=== PATIENT | male | born 1940 | race Caucasian/White ===

== ENCOUNTER 2017-05-30 09:38 | Emergency (ER) | payer MEDICARE, MEDICAID, SELFPAY ==
[2017-05-30 09:41] VITALS: BP 127/51; PULSE 56; RESP 20; TEMP 36.6; O2SAT 99; BMI 54.9
--- NOTE | 2017-05-30 09:50 | XR_ITS ---
XR elbow LT min 3V HISTORY: Left elbow pain with limited range of motion following injury ITS.REASON: S/P FALL LEFT ELBOW PAIN ORDERING PHYSICIAN: Cate Mccabe MD PATIENT AGE: 76 years COMPARISON: None FINDINGS: BONY STRUCTURES: No fracture or dislocation. No lytic or blastic change. Normal mineralization. SOFT TISSUES: Unremarkable. No radio opaque foreign bodies. No displaced fat pad. JOINT SPACE: Well-preserved. No significant arthritic changes evident. IMPRESSION: Negative elbow.
--- NOTE | 2017-05-30 09:58 | XR_ITS ---
XR forearm LT 2V HISTORY: Left forearm pain following injury ITS.REASON: fall in the [facility] ORDERING PHYSICIAN: Cate Mccabe MD PATIENT AGE: 76 years COMPARISON: None FINDINGS: No obvious fracture, dislocation, lytic change or blastic change. Normal mineralization. Unremarkable soft tissues. There is diffuse vascular calcification IMPRESSION: No acute finding
--- NOTE | 2017-05-30 09:58 | XR_ITS ---
XR wrist LT min 3V HISTORY: Pain following injury ITS.REASON: fall in the [facility] ORDERING PHYSICIAN: Cate Mccabe MD PATIENT AGE: 76 years COMPARISON: None FINDINGS: The distal radius and ulna have an unremarkable appearance. On the lateral view there are 2 calcific densities one of which is relatively well-circumscribed measuring 4 mm. This is consistent with a triquetral avulsion fracture age indeterminate. Please correlate with clinical findings. There is generalized vascular calcification. IMPRESSION: The findings are consistent with avulsion fracture of the triquetrum possibly old. Please correlate with patient's area of pain and tenderness.
--- NOTE | 2017-05-30 10:17 | ED_ITS ---
ED Disposition Clinical Impression: Fall, Parkinson disease, Contusion of elbow, left, Dementia, CAD (coronary artery disease), Encounter for aspirin therapy Disposition: Home, Self-Care Condition on Discharge: Fair Additional Instructions: fall precautions. follow up with DR Osman on final x ray reports. rest, ice , elevate and tylenol as needed for pain. Referrals: Andres Osman MD [Primary Care Provider] - - Critical Care Critical Care Time: No Attestation: On 05/30/17, the high probability of a clinically significant, sudden or life threatening deterioration of the following system(s) required my full and direct attention, intervention and personal management. The time I documented below is in addition to time spent performing reported procedures but includes the following listed in this critical care notation. Medical Decision Making - Paul Inquiry Pt receiving controlled substance: No Paul was queried for this patient: No Vital Signs: 05/30/17 09:41 Temperature 97.9 F Temperature Source Oral Pulse Rate [Right Brachial] 56 L Respiratory Rate 20 Blood Pressure [Right Arm] 127/51 Blood Pressure Mean [Right Arm] 76 Blood Pressure Source [Right Arm] Automatic Cuff Blood Pressure Position [Right Arm] Supine 02 Sat by Pulse Oximetry 99 Oxygen Delivery Method Room Air Orders (Tests/Meds): ORDERS Category Date Time Status Elbow XR left mininum 3 views [XR elbow LT min 3V] Stat Exams 05/30/17 09:50 Taken Wrist XR left minimum 3 views [XR wrist LT min 3V] Stat Exams 05/30/17 09:58 Taken XR forearm LT 2V Stat Exams 05/30/17 09:58 Taken - Radiology Data #1 Image(s): Elbow, Forearm, Wrist Image Reviewed: Yes I reviewed the patient's radiology image Preliminary Findings: Abnormal Preliminary report is no fracture no subluxation vascular calcifications no acute injury. General Adult HPI - General Chief complaint: PAIN Stated complaint: s/p fall Time Seen by Provider: 05/30/17 10:00 Mode of Arrival: EMS Limitations: No Limitations Description of Symptoms (Recalled from ER Triage Doc. by RN): S/P FALL C/O LEFT ELBOW PAIN. RESIDENT OF [place] - History of Present Illness HPI narrative: 76 years old white male with history of Parkinson's dementia coronary artery disease on aspirin therapy and frequent falls. He fell today at the [facility] landed on the left elbow was brought for evaluation the patient denies pain , deformity or loss of movement. Denies head injury, neck pain, low back pain or other extremity pain. he does have bruises on the back of both. Discussed with his son Trey who reported that this has happened in the past. Onset (ago): hour(s) (Prior to arrival.) Location: left (left elbow. ), upper extremity Severity: mild Quality: dull Consistency: constant Relieving factors: rest Exacerbating factors: movement Associated symptoms: denies other symptoms Treatments prior to arrival: none - Related Data Home Medications Medication Instructions Recorded Confirmed acetaminophen 500 mg tablet 500 mg PO Q6H PRN 04/23/17 aspirin 81 mg tablet,delayed 81 mg PO ONCE 04/23/17 release calcium carbonate 600 mg calcium 600 mg PO ONCE tab 04/23/17 (1,500 mg) tablet carbidopa 25 mg-levodopa 100 mg 1 tab PO TID 04/23/17 disint
--- NOTE | 2017-05-30 10:50 | [facility].EDGENADL ---
ED Disposition Clinical Impression: Fall, Parkinson disease, Contusion of elbow, left, Dementia, CAD (coronary artery disease), Encounter for aspirin therapy Disposition: Home, Self-Care Condition on Discharge: Fair Additional Instructions: fall precautions. follow up with DR Osman on final x ray reports. rest, ice , elevate and tylenol as needed for pain. Referrals: Andres Osman MD [Primary Care Provider] - - Critical Care Critical Care Time: No Attestation: On 05/30/17, the high probability of a clinically significant, sudden or life threatening deterioration of the following system(s) required my full and direct attention, intervention and personal management. The time I documented below is in addition to time spent performing reported procedures but includes the following listed in this critical care notation. Medical Decision Making - Paul Inquiry Pt receiving controlled substance: No Paul was queried for this patient: No Vital Signs: 05/30/17 09:41 Temperature 97.9 F Temperature Source Oral Pulse Rate [Right Brachial] 56 L Respiratory Rate 20 Blood Pressure [Right Arm] 127/51 Blood Pressure Mean [Right Arm] 76 Blood Pressure Source [Right Arm] Automatic Cuff Blood Pressure Position [Right Arm] Supine 02 Sat by Pulse Oximetry 99 Oxygen Delivery Method Room Air Orders (Tests/Meds): ORDERS Category Date Time Status Elbow XR left mininum 3 views [XR elbow LT min 3V] Stat Exams 05/30/17 09:50 Taken Wrist XR left minimum 3 views [XR wrist LT min 3V] Stat Exams 05/30/17 09:58 Taken XR forearm LT 2V Stat Exams 05/30/17 09:58 Taken - Radiology Data #1 Image(s): Elbow, Forearm, Wrist Image Reviewed: Yes I reviewed the patient's radiology image Preliminary Findings: Abnormal Preliminary report is no fracture no subluxation vascular calcifications no acute injury. General Adult HPI - General Chief complaint: PAIN Stated complaint: s/p fall Time Seen by Provider: 05/30/17 10:00 Mode of Arrival: EMS Limitations: No Limitations Description of Symptoms (Recalled from ER Triage Doc. by RN): S/P FALL C/O LEFT ELBOW PAIN. RESIDENT OF [place] - History of Present Illness HPI narrative: 76 years old white male with history of Parkinson's dementia coronary artery disease on aspirin therapy and frequent falls. He fell today at the [facility] landed on the left elbow was brought for evaluation the patient denies pain, deformity or loss of movement. Denies head injury, neck pain, low back pain or other extremity pain. he does have bruises on the back of both. Discussed with his son Trey who reported that this has happened in the past. Onset (ago): hour(s) (Prior to arrival.) Location: left (left elbow. ), upper extremity Severity: mild Quality: dull Consistency: constant Relieving factors: rest Exacerbating factors: movement Associated symptoms: denies other symptoms Treatments prior to arrival: none - Related Data Home Medications Medication Instructions Recorded Confirmed acetaminophen 500 mg tablet 500 mg PO Q6H PRN 04/23/17 aspirin 81 mg tablet,delayed 81 mg PO ONCE 04/23/17 release calcium carbonate 600 mg calcium 600 mg PO ONCE tab 04/23/17 (1,500 mg) tablet carbidopa 25 mg-levodopa 100 mg 1 tab PO TID 04/23/17 disintegrating tablet diphenhydramine 25 mg tablet 25 mg PO Q4-6H PRN 04/23/17 docusate sodium 250 mg capsule 250 mg PO ONCE 04/23/17 furosemide 20 mg tablet 20 mg PO ONCE 04/23/17 furosemide 20 mg tablet 20 mg PO ONCE 04/23/17 guaifenesin 100 mg oral granules 150 mg PO Q4-6H PRN 04/23/17 in packet guaifenesin 100 mg oral granules 150 mg PO Q4-6H PRN 04/23/17 in packet lactulose 10 gram oral packet 10 g PO ONCE 04/23/17 loratadine 10 mg tablet 10 mg PO ONCE 04/23/17 meloxicam 15 mg tablet 15 mg PO ONCE 04/23/17 metoprolol succinate ER 50 mg 50 mg PO BID 04/23/17 tablet,extended release 24 hr mirtazapine
[2017-05-30 11:08] VITALS: BP 151/59; PULSE 50; RESP 18; TEMP 36.6; O2SAT 100
== END 2017-05-30 11:11 | disposition home or self-care (01) ==
PROVIDERS: Emergency Provider Emergency Medicine; Family Provider Emergency Medicine; PCP Emergency Medicine
DX: S50.02XA Contusion of left elbow, initial encounter (principal); W01.0XXA Fall on same level from slipping, tripping and stumbling without subsequent striking against object, initial encounter; Y92.199 Unspecified place in other specified residential institution as the place of occurrence of the external cause; G20 Parkinson's disease; F02.80 Dementia in other diseases classified elsewhere, unspecified severity, without behavioral disturbance, psychotic disturbance, mood disturbance, and anxiety; I25.10 Atherosclerotic heart disease of native coronary artery without angina pectoris; Z79.82 Long term (current) use of aspirin; E78.5 Hyperlipidemia, unspecified; I10 Essential (primary) hypertension; Z88.2 Allergy status to sulfonamides
CPT/HCPCS: 73080; 73090; 73110; 99281

== ENCOUNTER → 2017-06-07 10:03 | Outpatient (CLI) | payer MEDICARE, MEDICAID, SELFPAY ==
--- NOTE | 2017-06-07 10:31 | XR_ITS ---
XR wrist LT min 3V HISTORY: Pain following injury ITS.REASON: Possible fx ORDERING PHYSICIAN: Calos Ramirez MD PATIENT AGE: 76 years COMPARISON: 05/30/2017 FINDINGS: Calcific debris once again noted along the dorsal mid aspect of the wrist suggesting a triquetral avulsion injury age indeterminate not significantly changed. There is diffuse vascular calcification. No other anomalies are evident aside for mild osteoarthritic change at the first metacarpal carpal joint. IMPRESSION: 1. Triquetral avulsion fracture age indeterminate. 2. No other acute findings evident
== END ==
PROVIDERS: PCP Emergency Medicine; Visit Provider Orthopaedic Surgery
DX: M25.532 Pain in left wrist
CPT/HCPCS: 73110

== ENCOUNTER 2018-04-15 15:36 | Observation (INO) ==
--- NOTE | 2018-04-15 15:43 | Emergency Department Note ---
ED Disposition Clinical Impression: New onset atrial fibrillation, Paroxysmal atrial fibrillation Chest pain Qualifiers: Chest pain type: unspecified Qualified Code(s): R07.9 - Chest pain, unspecified Disposition: Admitted as Observation Condition on Discharge: Good Referrals: Andres Osman MD [Primary Care Provider] - - Critical Care Critical Care Time: No Attestation: On 04/15/18, the high probability of a clinically significant, sudden or life threatening deterioration of the following system(s) required my full and direct attention, intervention and personal management. The time I documented below is in addition to time spent performing reported procedures but includes the following listed in this critical care notation. Medical Decision Making - Paul Inquiry Pt receiving controlled substance: No Vital Signs: 04/15/18 15:37 04/15/18 16:01 Temperature 98.1 F Temperature Source Oral Pulse Rate [Left Radial] 110 H 68 Respiratory Rate 20 Blood Pressure [Right Arm] 125/83 111/38 L Blood Pressure Mean [Right Arm] 97 62 Blood Pressure Source [Right Arm] Automatic Cuff Automatic Cuff Blood Pressure Position [Right Arm] Sitting Sitting 02 Sat by Pulse Oximetry 96 97 Oxygen Delivery Method Room Air Room Air - Lab Data Lab Results 04/15/18 15:46: WBC 9.7, RBC 4.11 L, Hgb 12.8 L, Hct 40.0 L, MCV 97.2 H, MCH 31.2, MCHC 32.1, RDW 13.1, Plt Count 275, MPV 6.7 L, Neut % (Auto) 64.4, Lymph % (Auto) 25.1, [place] % (Auto) 5.1, Eos % (Auto) 4.7, Baso % (Auto) 0.6, Neut # (Auto) 6.3, Lymph # (Auto) 2.4, [place] # (Auto) 0.5, Eos # (Auto) 0.5 H, Baso # (Auto) 0.1 04/15/18 15:46: Sodium 140, Potassium 4.6, Chloride 105, Carbon Dioxide 29, Anion Gap 10.6, BUN 33 H, Creatinine 1.48 H, Estimated Creat Clear 44, Estimated GFR 46 L, Est GFR ( Amer) 56 L, Glucose 159 H, Calcium 9.5, Total Bilirubin 0.4, Direct Bilirubin 0.1, Indirect Bilirubin 0.3, AST 18, ALT 10 L, Alkaline Phosphatase 101, Troponin I < 0.02, Total Protein 7.4, Albumin 3.1 L, Amylase 39, Lipase 149 04/15/18 15:46: TSH 3.20, Free T4 Index 3.0 L, Thyroxine (T4) 8.7, T3 Uptake 35 04/15/18 15:46: Magnesium 2.2 Result diagrams: 04/15/18 15:46 04/15/18 15:46 Orders (Tests/Meds): ED MEDICATIONS Discontinued Medications Generic Name Dose Route Start Last Admin Trade Name Freq PRN Reason Stop Dose Admin Digoxin 125 mcg 04/15/18 17:01 Digoxin 0.125mg Tablet PO 04/15/18 17:02 ONCE ONE Diltiazem HCl 10 mg 04/15/18 15:52 Cardizem 25mg/5ml Vial IV 04/15/18 15:53 ONCE ONE Diltiazem HCl 125 mg/ Sodium 125 mls @ 5 mls/hr 04/15/18 16:15 Chloride IV 05/15/18 16:14 .Q25H JOSE Protocol 5 MG/HR ORDERS Category Date Time Status Troponin I Timed Lab 04/15/18 18:30 Ordered - Radiology Data #1 Image(s): Chest Image Reviewed: Yes I reviewed the patient's radiology image scar vs atelect L base, no change from prior - ECG Data Tracing #1 EKG interpreted by Abhijeet Goncalves MD: Rhythm: Significant artifact present, irregular narrow complex rhythm, likely atrial fibrillation Rate: 114 [place]: Left Ectopy: none Conduction: normal ST Segment Changes: none T Wave Changes: none Q Waves: none No evidence of acute ischemia or injury 1 prior EKG found which was sinus rhythm Tracing #2 Patient spontaneously converted to sinus rhythm. EKG #2 interpreted by Abhijeet Goncalves MD: Rhythm: sinus Rate: 68 Maple: Left Ectopy: none Conduction: normal ST Segment Changes: none T Wave Changes: none Q Waves: none No evidence of acute ischemia or injury - Physician Consults Physician Consulted: Ayden Osman Time: 17:05 Reason -: Admission Comment/Response: Agrees to admit the patient to the hospital. We discussed the patient's clinical information, including history, exam, laboratory and radiology results and ED course. Per hospital procedure, I will write temporary bridge inpatient orders on the patient. Specific orders requested by the admitting physician: Telemetry, serial troponin, echo in the morning, one-time dose of oral digoxin 0.125 mg. General Adult HPI - General Chief complaint: Chest Pain Stated complaint: chest pain Time Seen by Provider: 04/15/18 15:38 Mode of Arrival: EMS - History of Present Illness HPI narrative: Brought in by ambulance from [facility] for a report of chest pain. The patient indicates to me that he has no pain of any type at present, but other than this I cannot understand his speech or answers to questions. Noted to have a diagnosis of dementia as well as Parkinson's disease. Has coronary artery disease. - Related Data Home Medications Medication Instructions Recorded Confirmed acetaminophen 500 mg tablet 500 mg PO Q6H PRN 04/23/17 04/15/18 aspirin 81 mg tablet,delayed 81 mg PO ONCE 04/23/17 04/15/18 release calcium carbonate 600 mg calcium 600 mg PO ONCE tab 04/23/17 04/15/18 (1,500 mg) tablet carbidopa 25 mg-levodopa 100 mg 1 tab PO TID 04/23/17 04/15/18 disintegrating tablet lactulose 10 gram oral packet 10 g PO ONCE 04/23/17 04/15/18 meloxicam 15 mg tablet 15 mg PO ONCE 04/23/17 04/15/18 metoprolol succinate ER 50 mg 50 mg PO BID 04/23/17 04/15/18 tablet,extended release 24 hr mirtazapine 15 mg tablet 15 mg PO QHS 04/23/17 04/15/18 oxybutynin chloride ER 10 mg 10 mg PO ONCE 04/23/17 04/15/18 tablet,extended release 24 hr polyethylene glycol liquid 17 gram MISCELLANE DAILY 04/23/17 04/15/18 pravastatin 40 mg tablet 40 mg PO QHS 04/23/17 04/15/18 ranitidine 150 mg capsule 150 mg PO QHS 04/23/17 04/15/18 rivastigmine 9.5 mg/24 hour 9.5 mg TRANSDERMA ONCE 04/23/17 04/15/18 transdermal patch sennosides 8.6 mg tablet 12 mg PO QHS 04/23/17 04/15/18 tamsulosin 0.4 mg capsule 0.4 mg PO ONCE 04/23/17 04/15/18 tramadol 50 mg tablet 50 mg PO ONCE 04/23/17 04/15/18 white petrolatum-mineral oil 83 1 applic OPHTHALMIC ONCE 04/23/17 04/15/18 %-15 % eye ointment fluoxetine 10 mg capsule 20 mg PO DAILY cap 05/24/17 04/15/18 gabapentin 100 mg capsule 100 mg PO BID cap 05/24/17 04/15/18 Carboxymethylcellulose Sodium 1 each OP BID 04/15/18 04/15/18 [Lubricant Plus] Dextran 70/Hypromellose 1 each OP TID 04/15/18 04/15/18 [Artificial Tears] Olopatadine HCl [Pataday] 1 drop OP BID 04/15/18 04/15/18 Propylene Glycol/Peg 400/Pf 1 each OP BID 04/15/18 04/15/18 [Systane 0.3-0.4% Eye Drops] Allergies Allergy/AdvReac Type Severity Reaction Status Date / Time Sulfa (Sulfonamide Allergy Unknown Verified 02/11/18 12:01 Antibiotics) [SULFA (SULFONAMIDE ANTIBIOTICS)] sulfamethoxazole Allergy Unknown Verified 02/11/18 12:01 [From Bactrim] trimethoprim [From Bactrim] Allergy Unknown Verified 02/11/18 12:01 [facility] History - Hepatitis A Screen Attestation statement:: This patient has been screened for Hepatitis A risk factors. I have reviewed the patient's past medical history: Yes Medical History: Reports:: Hyperlipidemia, Hypertension Other Medical History: Reports: Arthritis Other Surgeries: Yes: Colonoscopy, Other - Social History Smoking Status: Unknown if ever smoked Alcohol Intake: never ROS Obtained: Yes unobtainable due to mental condition Physical Exam - General General appearance: alert, in no apparent distress Comment: Parkinsonian pill-rolling tremor - Head Head exam: atraumatic, normocephalic - Eye Eye exam: Present: normal appearance - ENT ENT exam: Present: mucous membranes moist - Neck Neck exam: Present: normal inspection, trachea midline - Chest Chest inspection: Present: normal inspection, symmetric chest wall rise - Respiratory Respiratory exam: Present: normal lung sounds bilaterally. Absent: respiratory distress - Cardiovascular Cardiovascular exam: Present: tachycardia, irregular rhythm, normal heart sounds - Abdominal Exam Abdominal exam: Present: soft. Absent: distention, tenderness, guarding, rebound, rigidity - Extremities Exam Extremities exam: Present: normal inspection - Neurological Exam Neurological exam: Present: alert - Skin Skin exam: Present: warm, dry
[2018-04-15 16:00] LABS: Basophils # 0.1 K/mm3 (0-0.2); Basophils % 0.6 % (0.1-2.0); Eosinophils # 0.5 K/mm3 (0.0-0.4); Eosinophils % 4.7 % (0.1-12.0); Hemoglobin 12.8 g/dL (14.1-18.0); Lymphocytes # 2.4 K/mm3 (0.7-4.5); Lymphocytes % 25.1 % (10-50); Mean Corpuscular HGB Conc 32.1 g/dL (31.8-35.4); Mean Corpuscular Hemoglobin 31.2 pg (27.0-31.2); Mean Corpuscular Volume 97.2 fl (80-94); Mean Platelet Volume 6.7 fl (7.4-10.4); Monocytes # 0.5 K/mm3 (0.1-1.0); Monocytes % 5.1 % (1.7-9.3); Neutrophils # 6.3 K/mm3 (1.8-7.8); Neutrophils % 64.4 % (37.0-80.0); Platelet Count 275 K/mm3 (142-424); Red Blood Count 4.11 M/mm3 (4.60-6.20); Red Cell Distribution Width 13.1 % (11.5-17.5); White Blood Count 9.7 K/mm3 (4.8-10.8)
[2018-04-15 16:16] LABS: Alanine Aminotransferase 10 U/L (12-78); Albumin Level 3.1 gm/dL (3.4-5.0); Alkaline Phosphatase 101 U/L (46-116); Amylase 39 U/L (25-115); Anion Gap 10.6 mEq/L (5-15); Aspartate Amino Transferase 18 U/L (15-37); Bilirubin,Direct 0.1 mg/dL (0.0-0.2); Bilirubin,Indirect 0.3 mg/dL (0.0-0.9); Bilirubin,Total 0.4 mg/dL (0.2-1.0); Blood Urea Nitrogen 33 mg/dL (7-18); Calcium 9.5 mg/dL (8.5-10.1); Carbon Dioxide 29 mmol/L (21.0-32.0); Chloride 105 mmol/L (98-107); Glucose 159 mg/dL (74-106); Lipase 149 u/L (73-393); Potassium 4.6 mmoL/L (3.5-5.1); Sodium 140 mmol/L (136-145); Total Protein,Serum 7.4 gm/dL (6.4-8.2)
[2018-04-15 16:26] LABS: Thyroid Stimulating Hormone 3.2 uIU/ml (0.358-3.740)
--- NOTE | 2018-04-15 21:50 | History & Physical Report ---
*Admission Date: 04/15/18 *Chief complaint: chest pain *History of present illness: this wm was sent from [facility] for eval of chest pain ught in by ambulance from [facility] for a report of chest pain. The patient indicates to me that he has no pain of any type at present, . Noted to have a diagnosis of dementia as well as Parkinson's disease. Has coronary artery disease. [facility] History I have reviewed the patient's past medical history: Yes Medical History: Reports:: Hyperlipidemia, Hypertension Denies:: Diabetes Mellitus Type 1, Diabetes Mellitus Type 2 Have you ever received a pneumonia vaccine?: No Have you received a flu vaccine this season?: Yes Other Medical History: Reports: Arthritis Other Surgeries: Yes: Colonoscopy, Other - *Social History Smoking Status: Unknown if ever smoked Alcohol Intake: never Occupational Status: other Travel in the last 8 weeks: None - Psychiatric History Expresses thoughts of harming self/others: None Suicide Plan Description: No Plan *Family Hx:: Unable to obtain Review of Systems - Review of Systems Review of systems:: pertinent systems reviewed and negative unless documented below - Constitutional Denies fever(s) - Eyes Denies blurry vision - ENT Denies facial pain - *Cardiovascular Reports chest pain, Reports rapid, pounding, or irregular heartbeat, Denies radiating jaw, neck or arm pain - *Respiratory Denies cough - *Gastrointestinal Denies excessive passing of gas, Denies bright, red blood in stools, Denies vomiting - *Genitourinary Denies blood in urine - *Musculoskeletal Denies joint swelling - Integumentary/Breasts Denies rash - *Neurologic Denies localized weakness, Denies headache(s), Denies seizure-like activity - Psychiatric Denies anxiety Meds Home Medications Medication Instructions Recorded Confirmed Type acetaminophen 500 mg tablet 500 mg PO Q4HP PRN 04/23/17 04/15/18 History aspirin 81 mg tablet,delayed 81 mg PO DAILY 04/23/17 04/15/18 History release lactulose 10 gram oral packet 30 ml PO DAILYP PRN 04/23/17 04/15/18 History meloxicam 15 mg tablet 15 mg PO DAILY 04/23/17 04/15/18 History metoprolol succinate ER 50 mg 50 mg PO DAILY 04/23/17 04/16/18 History tablet,extended release 24 hr oxybutynin chloride ER 10 mg 10 mg PO DAILY 04/23/17 04/15/18 History tablet,extended release 24 hr polyethylene glycol liquid 17 g MISCELLANE DAILY 04/23/17 04/15/18 History pravastatin 40 mg tablet 40 mg PO QHS 04/23/17 04/15/18 History ranitidine 150 mg capsule 150 mg PO QHS 04/23/17 04/15/18 History sennosides 8.6 mg tablet 2 tab PO BID 04/23/17 04/16/18 History tamsulosin 0.4 mg capsule 0.4 mg PO HS 04/23/17 04/16/18 History white petrolatum-mineral oil 83 1 applic OPHTHALMIC DAILY 04/23/17 04/15/18 Hi story %-15 % eye ointment gabapentin 100 mg capsule 100 mg PO BID cap 05/24/17 04/15/18 History Carboxymethylcellulose Sodium 1 each OP BID 04/15/18 04/15/18 History [Lubricant Plus] Dextran 70/Hypromellose 1 each OP TID 04/15/18 04/15/18 History [Artificial Tears] Olopatadine HCl [Pataday] 1 drp OP BID 04/15/18 04/15/18 History Ondansetron HCl [Zofran 4mg Tab] 4 mg PO Q8HP PRN 04/15/18 04/15/18 History Propylene Glycol/Peg 400/Pf 1 each OP HS 04/15/18 04/15/18 History [Systane 0.3-0.4% Eye Drops] Tramadol HCl [Tramadol 50mg 50 mg PO TID 04/15/18 04/15/18 History Tab] Vit C/Vit E AC/Lut/Copper/Zinc 1 each PO DAILY 04/15/18 04/15/18 History [Preservision Lutein Softgel] guaiFENesin [Robitussin 200mg/10mL 200 mg PO Q4HP PRN 04/15/18 04/15/18 History Syrup Udc] Calcium Carbonate/Vitamin D3 1 each PO DAILY 04/16/18 04/16/18 History [Caltrate 600 Plus D3 Tablet] Carbidopa/Levodopa 1 tab PO 1300,2100 04/16/18 04/16/18 History [Carbidopa/Levodopa 25/100mg Tablet] Carbidopa/Levodopa 2 tab PO 0900,1700 04/16/18 04/16/18 History [Carbidopa/Levodopa 25/100mg Tablet] Fluoxetine HCl [Prozac 20mg 20 mg PO DAILY 04/16/18 04/16/18 History Capsule] Rivastigmine [Exelon] 1 each TD DAILY 04/16/18 04/16/18 History Allergies Allergy/AdvReac Type Severity Reaction Status Date / Time Sulfa (Sulfonamide Allergy Unknown Verified 04/15/18 20:49 Antibiotics) [SULFA (SULFONAMIDE ANTIBIOTICS)] sulfamethoxazole Allergy Unknown Verified 04/15/18 20:49 [From Bactrim] trimethoprim [From Bactrim] Allergy Unknown Verified 04/15/18 20:49 Exam Vital signs and Labs for Last 24 Hours: Temp Pulse Resp BP Pulse Ox 98 F 60 20 112/87 97 04/15/18 17:50 04/15/18 17:56 04/15/18 17:50 04/15/18 17:50 04/15/18 17:32 Laboratory Results - last 24 hr 04/15/18 15:46: WBC 9.7, RBC 4.11 L, Hgb 12.8 L, Hct 40.0 L, MCV 97.2 H, MCH 31.2, MCHC 32.1, RDW 13.1, Plt Count 275, MPV 6.7 L, Neut % (Auto) 64.4, Lymph % (Auto) 25.1, [place] % (Auto) 5.1, Eos % (Auto) 4.7, Baso % (Auto) 0.6, Neut # (Auto) 6.3, Lymph # (Auto) 2.4, [place] # (Auto) 0.5, Eos # (Auto) 0.5 H, Baso # (Auto) 0.1 04/15/18 15:46: Sodium 140, Potassium 4.6, Chloride 105, Carbon Dioxide 29, Anion Gap 10.6, BUN 33 H, Creatinine 1.48 H, Estimated Creat Clear 44, Estimated GFR 46 L, Est GFR ( Amer) 56 L, Glucose 159 H, Calcium 9.5, Total Bilirubin 0.4, Direct Bilirubin 0.1, Indirect Bilirubin 0.3, AST 18, ALT 10 L, Alkaline Phosphatase 101, Troponin I < 0.02, Total Protein 7.4, Albumin 3.1 L, Amylase 39, Lipase 149 04/15/18 15:46: TSH 3.20, Free T4 Index 3.0 L, Thyroxine (T4) 8.7, T3 Uptake 35 04/15/18 15:46: Magnesium 2.2 04/15/18 18:51: Troponin I < 0.02 04/15/18 21:22: Troponin I 0.02 I & O for Last 24 hours: Intake & Output 04/13/18 04/14/18 04/15/18 04/16/18 11:59 11:59 11:59 11:59 Weight 162 lb 6 oz - Constitutional no acute distress - *Routine HEENT Exam Head: Present: normocephalic Eye: Present: EOMI, PERRL ENT: Present: mucous membranes dry - *Routine Neck Exam Absent: JVD - *Routine Respiratory Exam Present: decreased breath sounds - *Routine Cardiovascular Exam Present: RRR, murmur, S4 - *Routine Abdominal Exam Present: soft - *Routine Extremities Exam Present: edema. Absent: calf tenderness - *Routine Skin Exam Present: intact - *Routine Neurological Exam Present: alert, oriented X3. Absent: motor deficit - Routine Psychiatric Exam Present: unable to assess Assessment and Plan (1) Atrial fibrillation Current visit: Yes Status: Acute Category: Medical Code(s): I48.91 - Unspecified atrial fibrillation (2) Dementia Current visit: Yes Status: Acute Qualifiers: Dementia type: unspecified type Dementia behavioral disturbance: without behavioral disturbance Qualified Code(s): F03.90 - Unspecified dementia without behavioral disturbance Category: Medical Code(s): F03.90 - Unspecified dementia without behavioral disturbance (3) Hypertension Current visit: Yes Status: Acute Category: Medical Code(s): I10 - Essential (primary) hypertension (4) New onset atrial fibrillation Current visit: Yes Status: Acute Category: Medical Code(s): I48.91 - Unspecified atrial fibrillation (5) Parkinson disease Current visit: Yes Status: Acute Category: Medical Code(s): G20 - Parkinson's disease (6) Renal insufficiency Current visit: Yes Status: Acute Category: Medical Code(s): N28.9 - Disorder of kidney and ureter, unspecified
[2018-04-16 05:47] LABS: Basophils # 0.1 K/mm3 (0-0.2); Basophils % 0.5 % (0.1-2.0); Eosinophils # 0.5 K/mm3 (0.0-0.4); Eosinophils % 5.9 % (0.1-12.0); Hematocrit 37.6 % (42.0-52.0); Hemoglobin 11.8 g/dL (14.1-18.0); Lymphocytes # 2.8 K/mm3 (0.7-4.5); Lymphocytes % 30.2 % (10-50); Mean Corpuscular HGB Conc 31.5 g/dL (31.8-35.4); Mean Corpuscular Hemoglobin 30.6 pg (27.0-31.2); Mean Corpuscular Volume 97.3 fl (80-94); Mean Platelet Volume 6.7 fl (7.4-10.4); Monocytes # 0.6 K/mm3 (0.1-1.0); Monocytes % 6.4 % (1.7-9.3); Neutrophils # 5.2 K/mm3 (1.8-7.8); Platelet Count 267 K/mm3 (142-424); Red Blood Count 3.87 M/mm3 (4.60-6.20); Red Cell Distribution Width 13.3 % (11.5-17.5); White Blood Count 9.2 K/mm3 (4.8-10.8)
[2018-04-16 05:55] LABS: Anion Gap 10.2 mEq/L (5-15); Potassium 4.2 mmoL/L (3.5-5.1)
--- NOTE | 2018-04-16 07:48 | Pharmacy Consult Notes ---
[facility] Pharmacy VTE Monitoring - Patient Demographics Admission date: 04/15/18 Report Date: 04/16/18 Time: 07:47 Allergies/Adverse Reactions: Patient Allergies Sulfa (Sulfonamide Antibiotics) [SULFA (SULFONAMIDE ANTIBIOTICS)] Allergy (Unknown, Verified 04/15/18 20:49) sulfamethoxazole [From Bactrim] Allergy (Unknown, Verified 04/15/18 20:49) trimethoprim [From Bactrim] Allergy (Unknown, Verified 04/15/18 20:49) Height: 1.65 m Weight: 73.652 kg Patient Problems: Current Active Problems New onset atrial fibrillation (Acute) Paroxysmal atrial fibrillation (Acute) Chest pain (Acute) - VTE Risk Labs: VTE Related Lab Results Hgb 11.8 g/dL (14.1-18.0) L 04/16/18 05:35 Hct 37.6 % (42.0-52.0) L 04/16/18 05:35 Plt Count 267 K/mm3 (142-424) 04/16/18 05:35 BUN 31 mg/dL (7-18) H 04/16/18 05:35 Creatinine 1.61 mg/dL (0.70-1.30) H 04/16/18 05:35 Estimated Creat Clear 39 mL/min (50-200) 04/16/18 05:35 Was VTE Risk Assessment Performed: Yes VTE Score: 2 VTE Risk Level: Low Risk - Prophylaxis VTE Prophylaxis Ordered?: Yes Types of VTE Prophylaxis: TEDS Knee High Location of Applied Device: Bilateral Lower Extremeties - VTE Diagnosis Confirmed Treatment or plan recommended: Continue Current Treatment
--- NOTE | 2018-04-16 11:04 | Consult Report ---
<Cinthya Ruff - Last Filed: 04/16/18 11:01> History of Present Illness Consult date: 04/16/18 (@4189) Requesting physician: Andres Osman Consult reason: chest pain Chief complaint: Chest pain History of present illness: This is a 77-year-old white male who was brought to the emergency department from the care home secondary to chest pain. However when I talked to the patient he denies any chest pain or pressure. He states that he was brought to the hospital to feel better. He denies any complaints at all. The patient does have dementia. He adamantly declines chest pain or pressure this morning. He denies any shortness of breath or edema. The patient states that he feels fine this morning. He is alert and oriented to self and place. When asked if the patient felt his heart racing yesterday he does say yes but states that he had no chest pain or pressure. However in report the nurse says that the care home brought him to the hospital because of him having chest pain. He has ruled out for an OR and is currently having no pain. [facility] History I have reviewed the patient's past medical history: Yes Medical History: Reports:: Atherosclerotic Heart Disease, Coronary Artery Disease, Hyperlipidemia, Hypertension Denies:: Diabetes Mellitus Type 1, Diabetes Mellitus Type 2 Have you ever received a pneumonia vaccine?: No Have you received a flu vaccine this season?: Yes Other Medical History: Reports: Arthritis Other Surgeries: Yes: Colonoscopy, Other - *Social History Smoking Status: Unknown if ever smoked Alcohol Intake: never Occupational Status: other Travel in the last 8 weeks: None - Psychiatric History Expresses thoughts of harming self/others: None Suicide Plan Description: No Plan *Family Hx:: Unable to obtain Meds Home Medications Medication Instructions Recorded Confirmed Type acetaminophen 500 mg tablet 500 mg PO Q4HP PRN 04/23/17 04/15/18 History aspirin 81 mg tablet,delayed 81 mg PO DAILY 04/23/17 04/15/18 History release lactulose 10 gram oral packet 30 ml PO DAILYP PRN 04/23/17 04/15/18 History meloxicam 15 mg tablet 15 mg PO DAILY 04/23/17 04/15/18 History metoprolol succinate ER 50 mg 50 mg PO DAILY 04/23/17 04/16/18 History tablet,extended release 24 hr oxybutynin chloride ER 10 mg 10 mg PO DAILY 04/23/17 04/15/18 History tablet,extended release 24 hr polyethylene glycol liquid 17 g MISCELLANE DAILY 04/23/17 04/15/18 History pravastatin 40 mg tablet 40 mg PO QHS 04/23/17 04/15/18 History ranitidine 150 mg capsule 150 mg PO QHS 04/23/17 04/15/18 History sennosides 8.6 mg tablet 2 tab PO BID 04/23/17 04/16/18 History tamsulosin 0.4 mg capsule 0.4 mg PO HS 04/23/17 04/16/18 History white petrolatum-mineral oil 83 1 applic OPHTHALMIC DAILY 04/23/17 04/15/18 History %-15 % eye ointment gabapentin 100 mg capsule 100 mg PO BID cap 05/24/17 04/15/18 History Carboxymethylcellulose Sodium 1 each OP BID 04/15/18 04/15/18 History [Lubricant Plus] Dextran 70/Hypromellose 1 each OP TID 04/15/18 04/15/18 History [Artificial Tears] Olopatadine HCl [Pataday] 1 drp OP BID 04/15/18 04/15/18 History Ondansetron HCl [Zofran 4mg Tab] 4 mg PO Q8HP PRN 04/15/18 04/15/18 History Propylene Glycol/Peg 400/Pf 1 each OP HS 04/15/18 04/15/18 History [Systane 0.3-0.4% Eye Drops] Tramadol HCl [Tramadol 50mg 50 mg PO TID 04/15/18 04/15/18 History Tab] Vit C/Vit E AC/Lut/Copper/Zinc 1 each PO DAILY 04/15/18 04/15/18 History [Preservision Lutein Softgel] guaiFENesin [Robitussin 200mg/10mL 200 mg PO Q4HP PRN 04/15/18 04/15/18 History Syrup Udc] Calcium Carbonate/Vitamin D3 1 each PO DAILY 04/16/18 04/16/18 History [Caltrate 600 Plus D3 Tablet] Carbidopa/Levodopa 1 tab PO 1300,2100 04/16/18 04/16/18 History [Carbidopa/Levodopa 25/100mg Tablet] Carbidopa/Levodopa 2 tab PO 0900,1700 04/16/18 04/16/18 History [Carbidopa/Levodopa 25/100mg Tablet] Fluoxetine HCl [Prozac 20mg 20 mg PO DAILY 04/16/18 04/16/18 History Capsule] Rivastigmine [Exelon] 1 each TD DAILY 04/16/18 04/16/18 History Allergies Allergy/AdvReac Type Severity Reaction Status Date / Time Sulfa (Sulfonamide Allergy Unknown Verified 04/15/18 20:49 Antibiotics) [SULFA (SULFONAMIDE ANTIBIOTICS)] sulfamethoxazole Allergy Unknown Verified 04/15/18 20:49 [From Bactrim] trimethoprim [From Bactrim] Allergy Unknown Verified 04/15/18 20:49 Review of Systems - Review of Systems Review of systems:: pertinent systems reviewed and negative unless documented below - *Cardiovascular Reports fast heart rate Exam Vital signs and Labs for Last 24 Hours: Temp Pulse Resp BP Pulse Ox 97.9 F 70 18 160/77 H 95 04/16/18 08:00 04/16/18 08:00 04/16/18 08:00 04/16/18 08:00 04/16/18 08:00 Laboratory Results - last 24 hr 04/15/18 15:46: WBC 9.7, RBC 4.11 L, Hgb 12.8 L, Hct 40.0 L, MCV 97.2 H, MCH 31.2, MCHC 32.1, RDW 13.1, Plt Count 275, MPV 6.7 L, Neut % (Auto) 64.4, Lymph % (Auto) 25.1, [place] % (Auto) 5.1, Eos % (Auto) 4.7, Baso % (Auto) 0.6, Neut # (Auto) 6.3, Lymph # (Auto) 2.4, [place] # (Auto) 0.5, Eos # (Auto) 0.5 H, Baso # (Auto) 0.1 04/15/18 15:46: Sodium 140, Potassium 4.6, Chloride 105, Carbon Dioxide 29, Anion Gap 10.6, BUN 33 H, Creatinine 1.48 H, Estimated Creat Clear 44, Estimated GFR 46 L, Est GFR ( Amer) 56 L, Glucose 159 H, Calcium 9.5, Total Bilirubin 0.4, Direct Bilirubin 0.1, Indirect Bilirubin 0.3, AST 18, ALT 10 L, Alkaline Phosphatase 101, Troponin I < 0.02, Total Protein 7.4, Albumin 3.1 L, Amylase 39, Lipase 149 04/15/18 15:46: TSH 3.20, Free T4 Index 3.0 L, Thyroxine (T4) 8.7, T3 Uptake 35 04/15/18 15:46: Magnesium 2.2 04/15/18 18:51: Troponin I < 0.02 04/15/18 21:22: Troponin I 0.02 04/16/18 05:35: Troponin I < 0.02 04/16/18 05:35: WBC 9.2, RBC 3.87 L, Hgb 11.8 L, Hct 37.6 L, MCV 97.3 H, MCH 30.6, MCHC 31.5 L, RDW 13.3, Plt Count 267, MPV 6.7 L, Neut % (Auto) 57.0, Lymph % (Auto) 30.2, [place] % (Auto) 6.4, Eos % (Auto) 5.9, Baso % (Auto) 0.5, Neut # (Auto) 5.2, Lymph # (Auto) 2.8, [place] # (Auto) 0.6, Eos # (Auto) 0.5 H, Baso # (Auto) 0.1 04/16/18 05:35: Sodium 143, Potassium 4.2, Chloride 108 H, Carbon Dioxide 29, Anion Gap 10.2, BUN 31 H, Creatinine 1.61 H, Estimated Creat Clear 39, Estimated GFR 42 L, Est GFR ( Amer) 50 L, Glucose 93 D, Calcium 9.0 I & O for Last 24 hours: Intake & Output 04/13/18 04/14/18 04/15/18 04/16/18 23:59 23:59 23:59 23:59 Output Total 150 / 150 Balance -150 / -150 Weight 162 lb 6 oz 162 lb 6 oz Narrative: EKG #1 shows atrial fibrillation with a rate of 114 and an old inferior OR pattern. EKG #2 shows sinus rhythm with an old inferior OR pattern and a rate of 68. His telemetry strip shows sinus rhythm with a rate of 70. - *Routine HEENT Exam Head: Present: normocephalic, atraumatic Eye: Present: EOMI, PERRL ENT: Present: mucous membranes moist - *Routine Neck Exam Present: supple, normal carotid upstroke. Absent: JVD, carotid bruit, lymphadenopathy - *Routine Respiratory Exam Present: CTA bilaterally - *Routine Cardiovascular Exam Present: RRR, Normal S1, Normal S2. Absent: murmur, gallop - *Routine Abdominal Exam Present: soft, normoactive bowel sounds. Absent: tenderness - *Routine Extremities Exam Present: full ROM, pulses intact. Absent: cyanosis, clubbing, edema - *Routine Skin Exam Present: intact, warm. Absent: rash - *Routine Neurological Exam Present: alert, CN II-XII intact. Absent: oriented X3 (He is oriented to person and place) - Detailed Eye Exam Eyelids: Left normal inspection Assessment and Plan (1) Atrial fibrillation Current visit: Yes Status: Acute Category: Medical Code(s): I48.91 - Unspecified atrial fibrillation (2) Hypertension Current visit: Yes Status: Acute Category: Medical Code(s): I10 - Essential (primary) hypertension (3) Hyperlipidemia Current visit: Yes Status: Acute Category: Medical Code(s): E78.5 - Hyperlipidemia, unspecified (4) Dementia Current visit: Yes Status: Acute Category: Medical Code(s): F03.90 - Unspecified dementia without behavioral disturbance (5) CAD (coronary artery disease) Current visit: No Status: Chronic Qualifiers: Coronary Disease-Associated Artery/Lesion type: [place] artery [place] vs. transplanted heart: [place] heart Associated angina: without angina Qualified Code(s): I25.10 - Atherosclerotic heart disease of [place] coronary artery without angina pectoris Category: Medical Code(s): I25.10 - Atherosclerotic heart disease of [place] coronary artery without angina pectoris (6) Parkinson's disease Current visit: No Status: Chronic Category: Medical Code(s): G20 - Parkinson's disease - Assessment and plan all Dx Assessment and Plan for all problems:: Plan: 1. The patient was admitted to the hospital with atrial fibrillation with RVR the patient was given a dose of digoxin yesterday and he is also on metoprolol. He was converted to sinus rhythm with these medications. The patient never received his dose of Cardizem. He is now in sinus rhythm. 2. We will continue his Toprol XL 50 mg daily. We will also get him started on diltiazem ER 120 mg daily for suppression of his atrial fibrillation. 3. The patient is not a candidate for oral anticoagulation due to his dementia. He has high risk for falls. 4. His blood pressure is elevated this morning. The diltiazem will help to improve his blood pressure as well. 5. The patient does have a history of coronary artery disease. He denying any chest pain this morning. He is ruled out for an OR. No plans for invasive cardiac testing at this time. 6. His alcohol is less than 55. 7. We will get an echocardiogram today to evaluate LV function. 8. As long as he has a preserved ejection fraction, we will plan for no invasive interventions on this patient. 9. Further recommendations will be made pending the patient's response to treatment and the results of his echocardiogram today. Thank you for the opportunity to help her to spend the care of this patient. <Andres Osman - Last Filed: 04/16/18 12:06> Exam Vital signs and Labs for Last 24 Hours: Temp Pulse Resp BP Pulse Ox 97.9 F 62 18 113/79 98 04/16/18 11:39 04/16/18 11:39 04/16/18 11:39 04/16/18 11:39 04/16/18 11:39 Laboratory Results - last 24 hr 04/15/18 15:46: WBC 9.7, RBC 4.11 L, Hgb 12.8 L, Hct 40.0 L, MCV 97.2 H, MCH 31.2, MCHC 32.1, RDW 13.1, Plt Count 275, MPV 6.7 L, Neut % (Auto) 64.4, Lymph % (Auto) 25.1, [place] % (Auto) 5.1, Eos % (Auto) 4.7, Baso % (Auto) 0.6, Neut # (Auto) 6.3, Lymph # (Auto) 2.4, [place] # (Auto) 0.5, Eos # (Auto) 0.5 H, Baso # (Auto) 0.1 04/15/18 15:46: Sodium 140, Potassium 4.6, Chloride 105, Carbon Dioxide 29, Anion Gap 10.6, BUN 33 H, Creatinine 1.48 H, Estimated Creat Clear 44, Estimated GFR 46 L, Est GFR ( Amer) 56 L, Glucose 159 H, Calcium 9.5, Total Bilirubin 0.4, Direct Bilirubin 0.1, Indirect Bilirubin 0.3, AST 18, ALT 10 L, Alkaline Phosphatase 101, Troponin I < 0.02, Total Protein 7.4, Albumin 3.1 L, Amylase 39, Lipase 149 04/15/18 15:46: TSH 3.20, Free T4 Index 3.0 L, Thyroxine (T4) 8.7, T3 Uptake 35 04/15/18 15:46: Magnesium 2.2 04/15/18 18:51: Troponin I < 0.02 04/15/18 21:22: Troponin I 0.02 04/16/18 05:35: Troponin I < 0.02 04/16/18 05:35: WBC 9.2, RBC 3.87 L, Hgb 11.8 L, Hct 37.6 L, MCV 97.3 H, MCH 30.6, MCHC 31.5 L, RDW 13.3, Plt Count 267, MPV 6.7 L, Neut % (Auto) 57.0, Lymph % (Auto) 30.2, [place] % (Auto) 6.4, Eos % (Auto) 5.9, Baso % (Auto) 0.5, Neut # (Auto) 5.2, Lymph # (Auto) 2.8, [place] # (Auto) 0.6, Eos # (Auto) 0.5 H, Baso # (Auto) 0.1 04/16/18 05:35: Sodium 143, Potassium 4.2, Chloride 108 H, Carbon Dioxide 29, Anion Gap 10.2, BUN 31 H, Creatinine 1.61 H, Estimated Creat Clear 39, Estimated GFR 42 L, Est GFR ( Amer) 50 L, Glucose 93 D, Calcium 9.0 I & O for Last 24 hours: Intake & Output 04/14/18 04/15/18 04/16/18 04/17/18 11:59 11:59 11:59 11:59 Output Total 150 / 150 Balance -150 / -150 Weight 162 lb 6 oz Assessment and Plan (1) Atrial fibrillation Current visit: Yes Status: Acute Category: Medical Code(s): I48.91 - Unspecified atrial fibrillation (2) Hypertension Current visit: Yes Status: Acute Category: Medical Code(s): I10 - Essential (primary) hypertension (3) Hyperlipidemia Current visit: Yes Status: Acute Category: Medical Code(s): E78.5 - Hyperlipidemia, unspecified (4) Dementia Current visit: Yes Status: Acute Category: Medical Code(s): F03.90 - Unspecified dementia without behavioral disturbance (5) CAD (coronary artery disease) Current visit: No Status: Chronic Qualifiers: Coronary Disease-Associated Artery/Lesion type: [place] artery [place] vs. transplanted heart: [place] heart Associated angina: without angina Qualified Code(s): I25.10 - Atherosclerotic heart disease of [place] coronary artery without angina pectoris Category: Medical Code(s): I25.10 - Atherosclerotic heart disease of [place] coronary artery without angina pectoris (6) Parkinson's disease Current visit: No Status: Chronic Category: Medical Code(s): G20 - Parkinson's disease
--- NOTE | 2018-04-16 12:16 | Discharge Summary ---
General - General Admission date:: 04/15/18 Discharge date: 04/16/18 HPI HPI: this wm was sent from [facility] for eval of chest pain ught in by ambulance from [facility] for a report of chest pain. The patient indicates to me that he has no pain of any type at present, . Noted to have a diagnosis of dementia as well as Parkinson's disease. Has coronary artery disease. Hospital Course Hospital Course: pt did well and converted to nsr and has no chabnge in card enz and echo was grossly ok- he was seen by card-s is a 77-year-old white male who was brought to the emergency department from the [facility] secondary to chest pain. However when I talked to the patient he denies any chest pain or pressure. He states that he was brought to the hospital to feel better. He denies any complaints at all. The patient does have dementia. He adamantly declines chest pain or pressure this morning. He denies any shortness of breath or edema. The patient states that he feels fine this morning. He is alert and oriented to self and place. When asked if the patient felt his heart racing yesterday he does say yes but states that he had no chest pain or pressure. However in report the nurse says that the [facility] brought him to the hospital because of him having chest pain. He has ruled out for an MN and is currently having no pain. patient was admitted to the hospital with atrial fibrillation with RVR the patient was given a dose of digoxin yesterday and he is also on metoprolol. He was converted to sinus rhythm with these medications. The patient never received his dose of Cardizem. He is now in sinus rhythm. 2. We will continue his Toprol XL 50 mg daily. We will also get him started on diltiazem ER 120 mg daily for suppression of his atrial fibrillation. 3. The patient is not a candidate for oral anticoagulation due to his dementia. He has high risk for falls. 4. His blood pressure is elevated this morning. The diltiazem will help to improve his blood pressure as well. 5. The patient does have a history of coronary artery disease. He denying any chest pain this morning. He is ruled out for an MN. No plans for invasive cardiac testing at this time. 6. His alcohol is less than 55. 7. We will get an echocardiogram today to evaluate LV function. 8. As long as he has a preserved ejection fraction, we will plan for no invasive interventions on this patient. 9. Further recommendations will be made pending the patient's response to treatment and the results of his echocardiogram today. will return to [facility] and follow as op Objective Vital signs: Temp Pulse Resp BP Pulse Ox 97.9 F 62 18 113/79 98 04/16/18 11:39 04/16/18 11:39 04/16/18 11:39 04/16/18 11:39 04/16/18 11:39 no acute distress - *Routine HEENT Exam Head: Present: normocephalic, scalp tenderness Eye: Present: PERRL ENT: Present: mucous membranes dry - *Routine Neck Exam Absent: JVD - *Routine Respiratory Exam Present: decreased breath sounds - *Routine Cardiovascular Exam Present: RRR, murmur - *Routine Abdominal Exam Present: soft. Absent: tenderness - *Routine Extremities Exam Absent: calf tenderness - *Routine Skin Exam Present: intact - *Routine Neurological Exam Present: CN II-XII intact. Absent: motor deficit awake and open eyes on commaand and near baseline - Routine Psychiatric Exam Present: unable to assess Results Labs on day of discharge: Labs from last 24 hours 04/16/18 04/16/18 04/16/18 05:35 05:35 05:35 WBC 9.2 RBC 3.87 L Hgb 11.8 L Hct 37.6 L MCV 97.3 H MCH 30.6 MCHC 31.5 L RDW 13.3 Plt Count 267 MPV 6.7 L Neut % (Auto) 57.0 Lymph % (Auto) 30.2 [place] % (Auto) 6.4 Eos % (Auto) 5.9 Baso % (Auto) 0.5 Neut # (Auto) 5.2 Lymph # (Auto) 2.8 [place] # (Auto) 0.6 Eos # (Auto) 0.5 H Baso # (Auto) 0.1 Sodium 143 Potassium 4.2 Chloride 108 H Carbon Dioxide 29 Anion Gap 10.2 BUN 31 H Creatinine 1.61 H Estimated Creat Clear 39 Estimated GFR 42 L Est GFR ( Amer) 50 L Glucose 93 D Calcium 9.0 Magnesium Total Bilirubin Direct Bilirubin Indirect Bilirubin AST ALT Alkaline Phosphatase Troponin I < 0.02 Total Protein Albumin Amylase Lipase TSH Free T4 Index Thyroxine (T4) T3 Uptake 04/15/18 04/15/18 04/15/18 21:22 18:51 15:46 WBC RBC Hgb Hct MCV MCH MCHC RDW Plt Count MPV Neut % (Auto) Lymph % (Auto) [place] % (Auto) Eos % (Auto) Baso % (Auto) Neut # (Auto) Lymph # (Auto) [place] # (Auto) Eos # (Auto) Baso # (Auto) Sodium Potassium Chloride Carbon Dioxide Anion Gap BUN Creatinine Estimated Creat Clear Estimated GFR Est GFR ( Amer) Glucose Calcium Magnesium 2.2 Total Bilirubin Direct Bilirubin Indirect Bilirubin AST ALT Alkaline Phosphatase Troponin I 0.02 < 0.02 Total Protein Albumin Amylase Lipase TSH Free T4 Index Thyroxine (T4) T3 Uptake 04/15/18 04/15/18 04/15/18 15:46 15:46 15:46 WBC 9.7 RBC 4.11 L Hgb 12.8 L Hct 40.0 L MCV 97.2 H MCH 31.2 MCHC 32.1 RDW 13.1 Plt Count 275 MPV 6.7 L Neut % (Auto) 64.4 Lymph % (Auto) 25.1 [place] % (Auto) 5.1 Eos % (Auto) 4.7 Baso % (Auto) 0.6 Neut # (Auto) 6.3 Lymph # (Auto) 2.4 [place] # (Auto) 0.5 Eos # (Auto) 0.5 H Baso # (Auto) 0.1 Sodium 140 Potassium 4.6 Chloride 105 Carbon Dioxide 29 Anion Gap 10.6 BUN 33 H Creatinine 1.48 H Estimated Creat Clear 44 Estimated GFR 46 L Est GFR ( Amer) 56 L Glucose 159 H Calcium 9.5 Magnesium Total Bilirubin 0.4 Direct Bilirubin 0.1 Indirect Bilirubin 0.3 AST 18 ALT 10 L Alkaline Phosphatase 101 Troponin I < 0.02 Total Protein 7.4 Albumin 3.1 L Amylase 39 Lipase 149 TSH 3.20 Free T4 Index 3.0 L Thyroxine (T4) 8.7 T3 Uptake 35 DS: Diagnosis - Discharge Diagnosis (1) Atrial fibrillation Status: Acute (2) Dementia Status: Acute (3) Hypertension Status: Acute (4) New onset atrial fibrillation Status: Acute (5) Parkinson disease Status: Acute (6) Renal insufficiency Status: Acute Discharge Plan - Patient Discharge Instructions ACTIVITY: Continue current activity DIET: continue same diet Patient Instructions: DI for Atrial Fibrillation, DI for Chest Pain - Follow up Plan Disposition: [facility] Home Medications: Home Medications Medication Instructions Recorded Confirmed Type acetaminophen 500 mg tablet 500 mg PO Q4HP PRN 04/23/17 04/15/18 History aspirin 81 mg tablet,delayed 81 mg PO DAILY 04/23/17 04/15/18 History release lactulose 10 gram oral packet 30 ml PO DAILYP PRN 04/23/17 04/15/18 History meloxicam 15 mg tablet 15 mg PO DAILY 04/23/17 04/15/18 History metoprolol succinate ER 50 mg 50 mg PO DAILY 04/23/17 04/16/18 History tablet,extended release 24 hr oxybutynin chloride ER 10 mg 10 mg PO DAILY 04/23/17 04/15/18 History tablet,extended release 24 hr polyethylene glycol liquid 17 g MISCELLANE DAILY 04/23/17 04/15/18 History pravastatin 40 mg tablet 40 mg PO QHS 04/23/17 04/15/18 History ranitidine 150 mg capsule 150 mg PO QHS 04/23/17 04/15/18 History sennosides 8.6 mg tablet 2 tab PO BID 04/23/17 04/16/18 History tamsulosin 0.4 mg capsule 0.4 mg PO HS 04/23/17 04/16/18 History white petrolatum-mineral oil 83 1 applic OPHTHALMIC DAILY 04/23/17 04/15/18 History %-15 % eye ointment gabapentin 100 mg capsule 100 mg PO BID cap 05/24/17 04/15/18 History Carboxymethylcellulose Sodium 1 each OP BID 04/15/18 04/15/18 History [Lubricant Plus] Dextran 70/Hypromellose 1 each OP TID 04/15/18 04/15/18 History [Artificial Tears] Olopatadine HCl [Pataday] 1 drp OP BID 04/15/18 04/15/18 History Ondansetron HCl [Zofran 4mg Tab] 4 mg PO Q8HP PRN 04/15/18 04/15/18 History Propylene Glycol/Peg 400/Pf 1 each OP HS 04/15/18 04/15/18 History [Systane 0.3-0.4% Eye Drops] Tramadol HCl [Tramadol 50mg 50 mg PO TID 04/15/18 04/15/18 History Tab] Vit C/Vit E AC/Lut/Copper/Zinc 1 each PO DAILY 04/15/18 04/15/18 History [Preservision Lutein Softgel] guaiFENesin [Robitussin 200mg/10mL 200 mg PO Q4HP PRN 04/15/18 04/15/18 History Syrup Udc] Calcium Carbonate/Vitamin D3 1 each PO DAILY 04/16/18 04/16/18 History [Caltrate 600 Plus D3 Tablet] Carbidopa/Levodopa 1 tab PO 1300,2100 04/16/18 04/16/18 History [Carbidopa/Levodopa 25/100mg Tablet] Carbidopa/Levodopa 2 tab PO 0900,1700 04/16/18 04/16/18 History [Carbidopa/Levodopa 25/100mg Tablet] Fluoxetine HCl [Prozac 20mg 20 mg PO DAILY 04/16/18 04/16/18 History Capsule] Rivastigmine [Exelon] 1 each TD DAILY 04/16/18 04/16/18 History dilTIAZem HCl [Cardizem CD 120mg 120 mg PO DAILY #90 cap.er.24h 04/16/18 Rx Cap] Prescriptions/Medication Reconciliation: New Calcium Carbonate [Oscal-500 tablet] 500 mg PO DAILY tablet Carbidopa/Levodopa [Carbidopa-Levo 25-100 mg Odt] 1 tab PO TID Mirtazapine [Remeron 15mg tablet] 15 mg PO HS tablet Polyethylene Glycol 3350 [Miralax 17gm Packet] 17 gm PO DAILY powd.pack Rivastigmine [Exelon 4.6mg/24hr Patch] 2 each TD DAILY patch.td24 dilTIAZem HCl [Cardizem CD 120mg Cap] 120 mg PO DAILY #90 cap.er.24h Continue lactulose 10 gram oral packet 30 ml PO DAILYP PRN PRN Reason: Constipation white petrolatum-mineral oil 83 %-15 % eye ointment 1 applic OPHTHALMIC DAILY aspirin 81 mg tablet,delayed release 81 mg PO DAILY sennosides 8.6 mg tablet 2 tab PO BID tamsulosin 0.4 mg capsule 0.4 mg PO HS oxybutynin chloride ER 10 mg tablet,extended release 24 hr 10 mg PO DAILY pravastatin 40 mg tablet 40 mg PO QHS metoprolol succinate ER 50 mg tablet,extended release 24 hr 50 mg PO DAILY gabapentin 100 mg capsule 100 mg PO BID cap acetaminophen 500 mg tablet 500 mg PO Q4HP PRN PRN Reason: pain/fever ranitidine 150 mg capsule 150 mg PO QHS Propylene Glycol/Peg 400/Pf [Systane 0.3-0.4% Eye Drops] 1 each OP HS Olopatadine HCl [Pataday] 1 drp OP BID Dextran 70/Hypromellose [Artificial Tears] 1 each OP TID Vit C/Vit E AC/Lut/Copper/Zinc [Preservision Lutein Softgel] 1 each PO DAILY guaiFENesin [Robitussin 200mg/10mL Syrup Udc] 200 mg PO Q4HP PRN PRN Reason: Cough Tramadol HCl [Tramadol 50mg Tab] 50 mg PO TID Ondansetron HCl [Zofran 4mg Tab] 4 mg PO Q8HP PRN PRN Reason: Nausea Calcium Carbonate/Vitamin D3 [Caltrate 600 Plus D3 Tablet] 1 each PO DAILY Rivastigmine [Exelon] 1 each TD DAILY Carbidopa/Levodopa [Carbidopa/Levodopa 25/100mg Tablet] 2 tab PO 0900,1700 Fluoxetine HCl [Prozac 20mg Capsule] 20 mg PO DAILY Carbidopa/Levodopa [Carbidopa/Levodopa 25/100mg Tablet] 1 tab PO 1300,2100 Discontinued polyethylene glycol liquid 17 g MISCELLANE DAILY meloxicam 15 mg tablet 15 mg PO DAILY Carboxymethylcellulose Sodium [Lubricant Plus] 1 each OP BID
--- NOTE | 2018-04-17 16:11 | Cardiology Report ---
PROCEDURE: 2-D M-mode and color Doppler study INDICATIONS FOR THE TEST: Chest pain+ COPD Heart Murmur Tobacco Smoking Palpitations Fatigue Syncope Edema Hypertension+Diabetes Mellitus Rheumatic Fever SOB QUINONES Obesity Hyperlipidemia+ Family History HD Additional History CAD,DEMENTIA, PARKINSONS PATIENT INFORMATION HEIGHT: 70 WEIGHT:166 GENDER: Male B/P:125/83 2-D/M-MODE INTERPRETATION: 2-D MEASUREMENTS OBSERVED VALUES IN CMS Right Ventricular Dimension (RVDd) 2.1 Interventricular Septum (Thickness)(IVsd) 1.0 Left Ventricular Internal Dimensions(LVIDd) 4.5 Left Ventricular Posterior Wall (Thickness)(LVPWd) 0.7 Aortic Root 3.6 Aortic Cusp Separation 2.0 Left Atrial Dimensions (LAD) 4.0 2D 1. Left atrium is mildly enlarged, left ventricle is normal size, mild concentric left ventricular hypertrophy, visually estimated ejection fraction 50% with no regional wall motion abnormality. 2. The right atrium and right ventricle are normal size and contractility. 3. The aortic valve is thickened and gas leaflet continue to display mobility. 4. The mitral and tricuspid valve leaflets are minimally thickened. There is mild mitral annular calcification present 5. The pulmonic valve is poorly visualized. 6. No significant pericardial effusion noted. DOPPLER INTERROGATION: Doppler interrogation of the aortic, mitral and tricuspid valvular presence of mild aortic, mild mitral and tricuspid regurgitation, tricuspid regurgitation jet velocity is inadequate for calculation of the right ventricular systolic pressure, grade 1 diastolic dysfunction seen with tissue Doppler evidence of raised left atrial pressure. CONCLUSION: 1. Mildly enlarged left atrium, normal left ventricular size, mild concentric left ventricular hypertrophy, visually estimated ejection fraction 50% with no regional wall motion abnormality, grade 1 diastolic dysfunction seen with tissue Doppler evidence of raised left atrial pressure. 2. Mild aortic, mild mitral and tricuspid regurgitation. 3. No significant pericardial effusion noted.
== END 2018-04-16 13:29 ==
LOC: ER 15:36 → 2ND 15:36
PROVIDERS: ADMIT Internal Medicine Adolescent Medicine; ATTEND Emergency Medicine
CPT/HCPCS: 36415; 71010; 71045; 80048; 80076; 82150; 83690; 83735; 84436; 84443; 84479; 84484; 85025; 93005; 93306; 99284; G0378

== ENCOUNTER 2018-09-08 14:07 | Emergency (ER) | payer MEDICARE, MEDICAID, SELFPAY ==
[2018-09-08 14:08] VITALS: BP 122/81; PULSE 65; RESP 18; TEMP 36.7; O2SAT 98; BMI 25.8
--- NOTE | 2018-09-08 14:11 | CT_ITS ---
CT head/brain wo con HISTORY: ITS.REASON: FALL ORDERING PHYSICIAN: Andres Manzanares MD PATIENT AGE: 77 years COMPARISON: None TECHNIQUE: Axial images obtained without contrast. Brain and bone windows reviewed. All CT scans at the facility use one or more dose reduction, viz: automated exposure control, ma/kV adjustment per patient size (including targeted exams where dose is matched to indication, i.e. head), or iterative reconstruction technique. FINDINGS: No midline shift, mass effect, intracranial hemorrhage, hydrocephalus, or extra-axial fluid collection is evident. There is a extra-axial focus of CSF density at the left middle cranial fossa causing some mild mass effect upon the anterior aspect of the left temporal lobe. This measures 1.1 x 2.0 cm. There is a punctate focus of hypodensity suggesting old lacunar infarct in the left thalamus. There is another focus at the left anterior commissure which could also be a prominent perivascular space which commonly occurs at this site. There are other subtle periventricular hypodense areas adjacent to the frontal horns of the lateral ventricles. The calvarium has an unremarkable appearance. No mastoid effusion. No sinus air-fluid levels.. IMPRESSION: No acute intracranial process. Small left middle cranial fossa benign arachnoid cyst. Old lacunar infarcts as discussed above although the left anterior commissure finding may also be developmental prominent perivascular space.
--- NOTE | 2018-09-08 14:12 | CT_ITS ---
CT CERVICAL SPINE WITHOUT CONTRAST CT RECONSTRUCTIONS HISTORY: ORDERING PHYSICIAN: Andres Manzanares MD PATIENT AGE: 77 years COMPARISON: None Technique: All CT scans at the facility use one or more dose reduction, viz: automated exposure control, ma/kV adjustment per patient size (including targeted exams where dose is matched to indication, i.e. head), or iterative reconstruction technique PROCEDURE: Axial spiral CT scanning performed of the cervical spine beginning at the base of the skull and continuing to the upper T-spine. 3-D multiplanar reconstruction with 3-D manipulation of volumetric data set in image rendering was completed by the radiologist and/or technologist with the supervision of the radiologist on independent workstation. FINDINGS: Bone density in the lung are normal. There is severe loss of disc space height posteriorly at C4-5 with diffuse small posterior spur. There is also uncovertebral joint hypertrophy with moderate foraminal correction and bilaterally at this level. Sagittal image #27 is a small defect involving the anterior cortex at the right side of the C2 vertebral body however a complete transverse fracture line through this area is not identified. This could be developmental. This area is also normal on the axial and coronal images. Posterior elements appear to be intact. There is no prevertebral soft tissue edema. There are thais plaques involving the carotid bifurcation area bilaterally. Impression: As discussed above nonspecific small anterior C2 vertebral body cortical defect on image #27, not seen on the other views and is likely developmental. No definite fracture line through this area. C4-5 degenerative disc disease with moderate bilateral spondylosis. Bilateral carotid bifurcation calcified plaques.
--- NOTE | 2018-09-08 14:12 | XR_ITS ---
XR elbow RT 2V HISTORY: ITS.REASON: FALL ORDERING PHYSICIAN: Andres Manzanares MD PATIENT AGE: 77 years COMPARISON: None FINDINGS: There are some vascular calcified plaques. There is a small spur from the lateral epicondyle. BONY STRUCTURES: No fracture or dislocation. No lytic or blastic change. Normal mineralization. SOFT TISSUES: Unremarkable. No radio opaque foreign bodies. No displaced fat pad. JOINT SPACE: Well-preserved. No significant arthritic changes evident. IMPRESSION: No acute process. Lateral epicondyle small spur.
--- NOTE | 2018-09-08 14:17 | XR_ITS ---
XR pelvis 1-2V HISTORY: Fall with injury and pain ITS.REASON: fall ORDERING PHYSICIAN: Andres Manzanares MD PATIENT AGE: 77 years Comparison: None FINDINGS: Bone density, hip joint spaces and alignment are normal. There are small calcific densities just lateral to the right femoral head and could be related to the soft tissues or labrum. This is only seen in one view. There are pelvic calcifications likely related to the prostate gland. IMPRESSION: No acute process. Prostate calcifications. Right hip calcific densities could be within posterior soft tissues or related to the labrum. These are likely benign.
--- NOTE | 2018-09-08 15:08 | [facility].EDGENADL ---
ED Disposition Clinical Impression: Contusion, Fall, Skin tear, Abnormality of gait and mobility Disposition: Xfer SNF Condition on Discharge: Fair Instructions: DI for Closed Head Injury Referrals: Provider,Referral, MD [Primary Care Provider] - Time of Disposition: 15:16 - Critical Care Critical Care Time: No Attestation: On 09/08/18, the high probability of a clinically significant, sudden or life threatening deterioration of the following system(s) required my full and direct attention, intervention and personal management. The time I documented below is in addition to time spent performing reported procedures but includes the following listed in this critical care notation. Medical Decision Making - Medical Records Medical records reviewed: Yes: I reviewed the patient's medical records. - Paul Inquiry Pt receiving controlled substance: No Paul was queried for this patient: No Vital Signs: 09/08/18 14:08 Temperature 98.1 F Temperature Source Oral Pulse Rate [Right Apical] 65 Respiratory Rate 18 Blood Pressure [Right Arm] 122/81 Blood Pressure Mean [Right Arm] 94 02 Sat by Pulse Oximetry 98 Oxygen Delivery Method Room Air - Lab Data Lab results reviewed: Yes: I reviewed the patient's lab results. Orders (Tests/Meds): ORDERS Category Date Time Status CT cervical spine wo con Stat Cat Scan 09/08/18 14:12 Taken Pelvis XR 1-2 views [XR pelvis 1-2V] Stat Exams 09/08/18 14:17 Taken XR elbow RT 2V Stat Exams 09/08/18 14:12 Taken General Adult HPI - General Chief complaint: Fall Stated complaint: FALL Time Seen by Provider: 09/08/18 14:10 Mode of Arrival: EMS Limitations: No Limitations Description of Symptoms (Recalled from ER Triage Doc. by RN): PT ARRIVED VIA EMS FROM [facility] WITH C/O HEMATOMA ON RT FOREHEAD AND LAC ON RT ELBOW DUE TO FALL. INTERMEDIATE DENIES LOC. - History of Present Illness HPI narrative: witnessed fall at [facility] living. knot on forehead, no loc - Related Data Home Medications Medication Instructions Recorded Confirmed acetaminophen 500 mg tablet 500 mg PO Q4HP PRN 04/23/17 08/12/18 aspirin 81 mg tablet,delayed 81 mg PO DAILY 04/23/17 08/12/18 release lactulose 10 gram oral packet 30 ml PO DAILYP PRN 04/23/17 08/12/18 metoprolol succinate ER 50 mg 50 mg PO DAILY 04/23/17 08/12/18 tablet,extended release 24 hr oxybutynin chloride ER 10 mg 10 mg PO DAILY 04/23/17 08/12/18 tablet,extended release 24 hr pravastatin 40 mg tablet 40 mg PO QHS 04/23/17 08/12/18 ranitidine 150 mg capsule 150 mg PO QHS 04/23/17 08/12/18 sennosides 8.6 mg tablet 2 tab PO BID 04/23/17 08/12/18 tamsulosin 0.4 mg capsule 0.4 mg PO HS 04/23/17 08/12/18 white petrolatum-mineral oil 83 1 applic OPHTHALMIC DAILY 04/23/17 08/12/18 %-15 % eye ointment gabapentin 100 mg capsule 100 mg PO BID cap 05/24/17 08/12/18 Dextran 70/Hypromellose 1 each OP TID 04/15/18 08/12/18 [Artificial Tears] Olopatadine HCl [Pataday] 1 drp OP BID 04/15/18 08/12/18 Ondansetron HCl [Zofran 4mg Tab] 4 mg PO Q8HP PRN 04/15/18 08/12/18 Propylene Glycol/Peg 400/Pf 1 each OP HS 04/15/18 08/12/18 [Systane 0.3-0.4% Eye Drops] Tramadol HCl [Tramadol 50mg 50 mg PO TID 04/15/18 08/12/18 Tab] Vit C/Vit E AC/Lut/Copper/Zinc 1 each PO DAILY 04/15/18 08/12/18 [Preservision Lutein Softgel] guaiFENesin [Robitussin 200mg/10mL 200 mg PO Q4HP PRN 04/15/18 08/12/18 Syrup Udc] Calcium Carbonate/Vitamin D3 1 each PO DAILY 04/16/18 08/12/18 [Caltrate 600 Plus D3 Tablet] Carbidopa/Levodopa 1 tab PO 1300,2100 04/16/18 08/12/18 [Carbidopa/Levodopa 25/100mg Tablet] Carbidopa/Levodopa 2 tab PO 0900,1700 04/16/18 08/12/18 [Carbidopa/Levodopa 25/100mg Tablet] Fluoxetine HCl [Prozac 20mg 20 mg PO DAILY 04/16/18 08/12/18 Capsule] Rivastigmine [Exelon] 1 each TD DAILY 04/16/18 08/12/18 Previous Rx's Medication Instructions Recorded Calcium Carbonate [Oscal-500 500 mg PO KIERAN
--- NOTE | 2018-09-08 15:11 | ED_ITS ---
ED Disposition Clinical Impression: Contusion, Fall, Skin tear, Abnormality of gait and mobility Disposition: Xfer SNF Condition on Discharge: Fair Instructions: DI for Closed Head Injury Referrals: Provider,Referral, MD [Primary Care Provider] - Time of Disposition: 15:16 - Critical Care Critical Care Time: No Attestation: On 09/08/18, the high probability of a clinically significant, sudden or life threatening deterioration of the following system(s) required my full and direct attention, intervention and personal management. The time I documented below is in addition to time spent performing reported procedures but includes the following listed in this critical care notation. Medical Decision Making - Medical Records Medical records reviewed: Yes: I reviewed the patient's medical records. - Paul Inquiry Pt receiving controlled substance: No Paul was queried for this patient: No Vital Signs: 09/08/18 14:08 Temperature 98.1 F Temperature Source Oral Pulse Rate [Right Apical] 65 Respiratory Rate 18 Blood Pressure [Right Arm] 122/81 Blood Pressure Mean [Right Arm] 94 02 Sat by Pulse Oximetry 98 Oxygen Delivery Method Room Air - Lab Data Lab results reviewed: Yes: I reviewed the patient's lab results. Orders (Tests/Meds): ORDERS Category Date Time Status CT cervical spine wo con Stat Cat Scan 09/08/18 14:12 Taken Pelvis XR 1-2 views [XR pelvis 1-2V] Stat Exams 09/08/18 14:17 Taken XR elbow RT 2V Stat Exams 09/08/18 14:12 Taken General Adult HPI - General Chief complaint: Fall Stated complaint: FALL Time Seen by Provider: 09/08/18 14:10 Mode of Arrival: EMS Limitations: No Limitations Description of Symptoms (Recalled from ER Triage Doc. by RN): PT ARRIVED VIA EMS FROM [facility] WITH C/O HEMATOMA ON RT FOREHEAD AND LAC ON RT ELBOW DUE TO FALL. [facility] DENIES LOC. - History of Present Illness HPI narrative: witnessed fall at alf. knot on forehead, no loc - Related Data Home Medications Medication Instructions Recorded Confirmed acetaminophen 500 mg tablet 500 mg PO Q4HP PRN 04/23/17 08/12/18 aspirin 81 mg tablet,delayed 81 mg PO DAILY 04/23/17 08/12/18 release lactulose 10 gram oral packet 30 ml PO DAILYP PRN 04/23/17 08/12/18 metoprolol succinate ER 50 mg 50 mg PO DAILY 04/23/17 08/12/18 tablet,extended release 24 hr oxybutynin chloride ER 10 mg 10 mg PO DAILY 04/23/17 08/12/18 tablet,extended release 24 hr pravastatin 40 mg tablet 40 mg PO QHS 04/23/17 08/12/18 ranitidine 150 mg capsule 150 mg PO QHS 04/23/17 08/12/18 sennosides 8.6 mg tablet 2 tab PO BID 04/23/17 08/12/18 tamsulosin 0.4 mg capsule 0.4 mg PO HS 04/23/17 08/12/18 white petrolatum-mineral oil 83 1 applic OPHTHALMIC DAILY 04/23/17 08/12/18 %-15 % eye ointment gabapentin 100 mg capsule 100 mg PO BID cap 05/24/17 08/12/18 Dextran 70/Hypromellose 1 each OP TID 04/15/18 08/12/18 [Artificial Tears] Olopatadine HCl [Pataday] 1 drp OP BID 04/15/18 08/12/18 Ondansetron HCl [Zofran 4mg Tab] 4 mg PO Q8HP PRN 04/15/18 08/12/18 Propylene Glycol/Peg 400/Pf 1 each OP HS 04/15/18 08/12/18 [Systane 0.3-0.4% Eye Drops]
[2018-09-08 16:23] VITALS: BP 122/64; PULSE 58; O2SAT 98
[2018-09-08 16:55] VITALS: BP 121/71; PULSE 63; O2SAT 98
[2018-09-08 17:10] VITALS: BP 121/67; PULSE 62; RESP 20; TEMP 36.7; O2SAT 98
== END 2018-09-08 17:12 ==
PROVIDERS: Emergency Provider Emergency Medicine; PCP Emergency Medicine
DX: S00.83XA Contusion of other part of head, initial encounter (principal); S51.011A Laceration without foreign body of right elbow, initial encounter; W01.0XXA Fall on same level from slipping, tripping and stumbling without subsequent striking against object, initial encounter; Y92.129 Unspecified place in nursing home as the place of occurrence of the external cause; I10 Essential (primary) hypertension; E78.5 Hyperlipidemia, unspecified; I25.10 Atherosclerotic heart disease of native coronary artery without angina pectoris; M62.81 Muscle weakness (generalized); F03.90 Unspecified dementia, unspecified severity, without behavioral disturbance, psychotic disturbance, mood disturbance, and anxiety; G20 Parkinson's disease
CPT/HCPCS: 70450; 72125; 72170; 73070; 99282

== ENCOUNTER → 2019-06-13 19:39 | Outpatient (CLI) | payer MEDICARE, MEDICAID, SELFPAY ==
[2019-06-13 20:06] LABS: Microscopic, Urine URINE MICROSCOPIC (MICROSCOPIC)
[2019-06-13 20:30] LABS: Alanine Aminotransferase 9 U/L (12-78); Albumin Level 3.9 g/dl (3.5-5.0); Albumin/Globulin Ratio 1.3 (1.1-1.8); Alkaline Phosphatase 92 U/L (38-126); Anion Gap 15.4 mEq/L (5-15); Aspartate Amino Transferase 21 U/L (17-59); Basophils # 0.1 K/mm3 (0-0.2); Basophils % 0.7 % (0.1-2.0); Bilirubin,Total 0.3 mg/dl (0.2-1.3); Blood Urea Nitrogen 32 mg/dl (9-20); Calcium 9.6 mg/dl (8.4-10.2); Carbon Dioxide 22 mmol/L (22.0-30.0); Chloride 107 mmol/L (98-107); Eosinophils # 0.4 K/mm3 (0.0-0.4); Estimated Glomerular Filt Rate 58 ml/min (>60); GFR (African American) 71 ML/MIN (>60); Globulin 3.1 g/dL (1.3-3.2); Glucose 102 mg/dl (74-100); Hematocrit 39.8 % (42.0-52.0); Lymphocytes # 2.9 K/mm3 (0.7-4.5); Lymphocytes % 30.9 % (10-50); Mean Corpuscular HGB Conc 32.7 g/dL (31.8-35.4); Mean Corpuscular Hemoglobin 32.1 pg (27.0-31.2); Mean Corpuscular Volume 98.2 fl (80-94); Mean Platelet Volume 7.6 fl (7.4-10.4); Monocytes # 0.7 K/mm3 (0.1-1.0); Monocytes % 7.1 % (1.7-9.3); Neutrophils # 5.3 K/mm3 (1.8-7.8); Neutrophils % 57.3 % (37.0-80.0); Platelet Count 284 K/mm3 (142-424); Potassium 4.4 mmoL/L (3.5-5.1); Red Blood Count 4.05 M/mm3 (4.60-6.20); Red Cell Distribution Width 13.1 % (11.5-17.5); Sodium 140 mmol/L (136-145); White Blood Count 9.3 K/mm3 (4.8-10.8)
[2019-06-13 20:40] LABS: Appearance,Urine CLEAR (Clear); Bilirubin,Urine Negative (Negative); Blood, Urine Negative (Negative); Color,Urine YELLOW (Yellow); Glucose,Urine (UA) Negative (Negative); Ketones,Urine Negative (Negative); Leukocyte Esterase,Urine TRACE (Negative); Nitrate,Urine Negative (Negative); Protein,Urine Negative (Negative); Specific Gravity, Urine 1.025 (1.005-1.030); Urobilinogen,Urine 0.2 EU/dl (0.2)
[2019-06-13 20:44] LABS: Amorphous Sediment,Urine Trace /lpf; Mucus,Urine Trace /lpf; WBC,Urine 20-50 #/hpf (0-3)
== END ==
PROVIDERS: Visit Provider Emergency Medicine
DX: R41.82 Altered mental status, unspecified (principal); R10.9 Unspecified abdominal pain; R30.0 Dysuria
CPT/HCPCS: 80053; 81001; 85025; 87086

== ENCOUNTER → 2019-07-26 01:14 | Outpatient (CLI) | payer MEDICARE, MEDICAID, SELFPAY ==
[2019-07-26 02:53] LABS: Microscopic, Urine URINE MICROSCOPIC (MICROSCOPIC)
[2019-07-26 02:59] LABS: Appearance,Urine CLEAR (Clear); Basophils # 0.1 K/mm3 (0-0.2); Basophils % 0.6 % (0.1-2.0); Bilirubin,Urine Negative (Negative); Blood, Urine Negative (Negative); Color,Urine YELLOW (Yellow); Eosinophils # 0.3 K/mm3 (0.0-0.4); Eosinophils % 2.9 % (0.1-12.0); Glucose,Urine (UA) Negative (Negative); Hematocrit 39.9 % (42.0-52.0); Hemoglobin 12.8 g/dL (14.1-18.0); Ketones,Urine Negative (Negative); Leukocyte Esterase,Urine 1+ (Negative); Lymphocytes # 2.6 K/mm3 (0.7-4.5); Lymphocytes % 22.1 % (10-50); Mean Corpuscular Hemoglobin 30.4 pg (27.0-31.2); Mean Corpuscular Volume 95.1 fl (80-94); Mean Platelet Volume 7.4 fl (7.4-10.4); Monocytes % 8.4 % (1.7-9.3); Neutrophils # 7.7 K/mm3 (1.8-7.8); Nitrate,Urine Negative (Negative); PH,Urine 6.5 (5.0-8.5); Platelet Count 282 K/mm3 (142-424); Protein,Urine Negative (Negative); Red Cell Distribution Width 13.6 % (11.5-17.5); Specific Gravity, Urine 1.025 (1.005-1.030); Urobilinogen,Urine 0.2 EU/dl (0.2); White Blood Count 11.6 K/mm3 (4.8-10.8)
[2019-07-26 03:04] LABS: WBC,Urine 20-50 #/hpf (0-3)
[2019-07-26 03:07] LABS: Albumin Level 4.1 g/dl (3.5-5.0); Albumin/Globulin Ratio 1.4 (1.1-1.8); Alkaline Phosphatase 107 U/L (38-126); Anion Gap 10.2 mEq/L (5-15); Aspartate Amino Transferase 19 U/L (17-59); Bilirubin,Total 0.4 mg/dl (0.2-1.3); Blood Urea Nitrogen 29 mg/dl (9-20); Calcium 9.7 mg/dl (8.4-10.2); Carbon Dioxide 28 mmol/L (22.0-30.0); Chloride 104 mmol/L (98-107); Estimated Glomerular Filt Rate 58 ml/min (>60); GFR (African American) 71 ML/MIN (>60); Glucose 86 mg/dl (74-100); Potassium 4.2 mmoL/L (3.5-5.1); Sodium 138 mmol/L (136-145); Total Protein,Serum 7.1 g/dl (6.3-8.2)
[2019-07-26 03:12] LABS: Alanine Aminotransferase 4 U/L (12-78)
== END ==
LOC: LAB 01:16 → LAB.DROPOF 07-27 09:12
PROVIDERS: PCP Emergency Medicine; Visit Provider Emergency Medicine
DX: R30.0 Dysuria (principal); R10.9 Unspecified abdominal pain; R31.9 Hematuria, unspecified
CPT/HCPCS: 80053; 81001; 85025; 87086; 87088; 87186

== ENCOUNTER → 2019-08-17 15:53 | Outpatient (CLI) | payer MEDICARE, MEDICAID, SELFPAY ==
[2019-08-17 15:57] LABS: Microscopic, Urine URINE MICROSCOPIC (MICROSCOPIC)
[2019-08-17 16:08] LABS: Appearance,Urine CLEAR (Clear); Bilirubin,Urine Negative (Negative); Blood, Urine Negative (Negative); Color,Urine YELLOW (Yellow); Glucose,Urine (UA) Negative (Negative); Ketones,Urine Negative (Negative); Leukocyte Esterase,Urine Negative (Negative); Nitrate,Urine Negative (Negative); Protein,Urine Negative (Negative); Specific Gravity, Urine >= 1.030 (1.005-1.030); Urobilinogen,Urine 0.2 EU/dl (0.2)
[2019-08-17 16:27] LABS: Bacteria,Urine Trace /lpf; Squamous Epithelial Cell,Urine Occasional #/hpf (0-5); WBC,Urine Occasional #/hpf (0-3)
== END ==
PROVIDERS: Visit Provider Emergency Medicine
DX: R41.0 Disorientation, unspecified (principal)
CPT/HCPCS: 81001; 87086; 87088; 87186

== ENCOUNTER → 2019-09-15 08:25 | Outpatient (POV) | payer MEDICARE, MEDICAID, SELFPAY | PROVIDERS: PCP Emergency Medicine; Visit Provider Physician Assistant | DX: Z00.00 Encounter for general adult medical examination without abnormal findings (principal) ==

== ENCOUNTER → 2019-10-13 08:37 | Outpatient (POV) | payer MEDICARE, MEDICAID, SELFPAY | PROVIDERS: PCP Emergency Medicine; Visit Provider Dermatology | DX: Z00.00 Encounter for general adult medical examination without abnormal findings (principal) ==

== ENCOUNTER 2019-12-28 15:03 | Emergency (ER) | payer MEDICARE, MEDICAID, SELFPAY ==
[2019-12-28 15:04] VITALS: BP 112/81; PULSE 56; RESP 17; TEMP 36.8; O2SAT 98; BMI 26.6
--- NOTE | 2019-12-28 15:28 | XR_ITS ---
PROCEDURE: XR KNEE LT 3V CLINICAL INDICATION: fall Pain following injury COMPARISON: No exams were available for comparison FINDINGS: No fracture or dislocation. No lytic or blastic change. There is normal mineralization. Mild osteoarthritic changes involve all 3 compartments. Other findings:Generalized vascular calcification IMPRESSION: No acute findings. Dictated by: Pete Archuleta MD 12/28/2019 17:10 Pete Archuleta MD in [place] 12/28/2019 17:10
--- NOTE | 2019-12-28 15:28 | CT_ITS ---
PROCEDURE: CT CERVICAL SPINE WO CON CLINICAL INDICATION: fall Neck injury with pain, contusion/abrasion or hematoma, cervical sprain/strain the COMPARISON: CT SPCERVWO CT cervical spine wo con from 09/08/2018 TECHNIQUE: Axial images obtained with sagittal and coronal reformats. All CT scans at the facility use one or more dose reduction, viz: automated exposure control, ma/kV adjustment per patient size (including targeted exams where dose is matched to indication, i.e. head), or iterative reconstruction technique. Axial spiral CT scanning performed of the cervical spine beginning at the base of the skull and continuing to the upper T-spine. 3-D multiplanar reconstruction with 3-D manipulation of volumetric data set in image rendering was completed by the radiologist and/or technologist with the supervision of the radiologist on independent workstation. FINDINGS: Normal alignment. Mild generalized osteopenia. Cervical spondylosis with degenerative disc disease at C2-C3 C3-C4 C4-C5 C5-C6 and C6-C7. Endplate osteophytes are present at C4-C5 with canal stenosis with bilateral lateral recess and foraminal narrowing. IMPRESSION: Degenerative change, no acute fracture Dictated by: Pete Archuleta MD 12/28/2019 16:47 Pete Archuleta MD in [facility] 12/28/2019 16:47
--- NOTE | 2019-12-28 15:28 | XR_ITS ---
PROCEDURE: XR CHEST AP CLINICAL HISTORY: fall Posttraumatic pain COMPARISON: CT CTAC CTA-CHEST from 10/23/2016 CR CXR1 CHEST-PORTABLE from 10/23/2016 CR CXR1VP XR chest portable from 04/15/2018 CR XR CHEST 2V from 11/25/2018 FINDINGS: Cardiomegaly without failure. The lungs are clear without infiltrates, suspicious nodules, or pleural effusions. Degenerative changes in the shoulders. IMPRESSION: Cardiomegaly otherwise negative Dictated by: Pete Archuleta MD 12/28/2019 17:09 Pete Archuleta MD in [facility] 12/28/2019 17:09
--- NOTE | 2019-12-28 15:28 | XR_ITS ---
PROCEDURE: XR PELVIS 1-2V CLINICAL INDICATION: fall Posttraumatic pain COMPARISON: No exams were available for comparison TECHNIQUE: XR Pelvis AP View FINDINGS: [place] catheter is present. There are mild osteoarthritic changes of the hips. No acute fracture or dislocation is evident. No lytic or blastic change. IMPRESSION: No acute findings. Dictated by: Pete Archuleta MD 12/28/2019 17:10 Pete Archuleta MD in [facility] 12/28/2019 17:10
--- NOTE | 2019-12-28 15:28 | CT_ITS ---
PROCEDURE: CT HEAD/BRAIN WO CON CLINICAL INDICATION: fall Head injury with headache/pain, contusion, abrasion or hematoma COMPARISON: CT HEADWO CT head/brain wo con from 09/08/2018 TECHNIQUE: Axial images obtained. All CT scans at the facility use one or more dose reduction, viz: automated exposure control, ma/kV adjustment per patient size (including targeted exams where dose is matched to indication, i.e. head), or iterative reconstruction technique. FINDINGS: No midline shift, mass effect, intracranial hemorrhage, hydrocephalus, or extra-axial fluid collection is evident. There is generalized atrophy with hypoattenuation of the periventricular white matter consistent with microangiopathic changes. The calvarium has an unremarkable appearance. No mastoid effusion. Mild mucosal thickening is present in the ethmoid sinuses on the left. IMPRESSION: No acute intracranial finding Dictated by: Pete Archuleta MD 12/28/2019 16:45 Pete Archuleta MD in [facility] 12/28/2019 16:45
[2019-12-28 15:35] LABS: Basophils # 0.1 K/mm3 (0-0.2); Basophils % 0.6 % (0.1-2.0); Eosinophils # 0.3 K/mm3 (0.0-0.4); Eosinophils % 3.5 % (0.1-12.0); Hematocrit 38.8 % (42.0-52.0); Hemoglobin 12.6 g/dL (14.1-18.0); Lymphocytes # 2.6 K/mm3 (0.7-4.5); Lymphocytes % 28.9 % (10-50); Mean Corpuscular HGB Conc 32.4 g/dL (31.8-35.4); Mean Corpuscular Hemoglobin 31.6 pg (27.0-31.2); Mean Corpuscular Volume 97.4 fl (80-94); Mean Platelet Volume 6.9 fl (7.4-10.4); Monocytes # 0.7 K/mm3 (0.1-1.0); Monocytes % 7.7 % (1.7-9.3); Neutrophils # 5.3 K/mm3 (1.8-7.8); Neutrophils % 59.2 % (37.0-80.0); Platelet Count 258 K/mm3 (142-424); Red Blood Count 3.98 M/mm3 (4.60-6.20); Red Cell Distribution Width 13.1 % (11.5-17.5); White Blood Count 8.9 K/mm3 (4.8-10.8)
[2019-12-28 15:36] LABS: Chloride 104 mmol/L (98-107); Sodium 139 mmol/L (136-145)
[2019-12-28 15:38] LABS: Blood Urea Nitrogen 31 mg/dl (9-20); Creatinine Clearance Estimated 52 mL/min (50-200); Estimated Glomerular Filt Rate 53 ml/min (>60); GFR (African American) 64 ML/MIN (>60)
[2019-12-28 15:39] LABS: Alanine Aminotransferase 6 U/L (12-78); Albumin Level 3.9 g/dl (3.5-5.0); Albumin/Globulin Ratio 1.2 (1.1-1.8); Alkaline Phosphatase 93 U/L (38-126); Aspartate Amino Transferase 21 U/L (17-59); Bilirubin,Total 0.4 mg/dl (0.2-1.3); Calcium 9.5 mg/dl (8.4-10.2); Carbon Dioxide 30 mmol/L (22.0-30.0); Globulin 3.2 g/dL (1.3-3.2); Glucose 108 mg/dl (74-100); Total Protein,Serum 7.1 g/dl (6.3-8.2)
[2019-12-28 15:46] LABS: Microscopic, Urine URINE MICROSCOPIC (MICROSCOPIC)
[2019-12-28 15:48] LABS: Appearance,Urine SL CLOUDY (Clear); Bilirubin,Urine Negative (Negative); Blood, Urine 1+ (Negative); Color,Urine YELLOW (Yellow); Glucose,Urine (UA) Negative (Negative); Ketones,Urine Negative (Negative); Leukocyte Esterase,Urine 1+ (Negative); Nitrate,Urine Negative (Negative); PH,Urine 6.5 (5.0-8.5); Protein,Urine Negative (Negative); Urobilinogen,Urine 0.2 EU/dl (0.2)
[2019-12-28 16:05] LABS: Bacteria,Urine 1+ /lpf; Squamous Epithelial Cell,Urine Occasional #/hpf (0-5)
--- NOTE | 2019-12-28 16:12 | HMH.EDGENADL ---
ED Disposition Clinical Impression: Conjunctivitis Qualifiers: Conjunctivitis type: acute Acute conjunctivitis type: bacterial Laterality: left Qualified Code(s): H10.32 - Unspecified acute conjunctivitis, left eye Accident due to mechanical fall without injury Qualifiers: Encounter type: initial encounter Qualified Code(s): W19.XXXA - Unspecified fall, initial encounter Disposition: Home, Self-Care Condition on Discharge: Good Instructions: How to Prevent Falls Additional Instructions: CT imaging of head and neck negative for acute findings and radiographic imaging of pelvis, knee, chest also demonstrates no acute changes. Basic lab work relatively unremarkable. Concern for conjunctivitis noted to patient's left so erythromycin topical ointment prescribed. Patient to return if any new or worsening symptoms. Prescriptions: Erythromycin Base [Erythromycin 1gm opth ointment] 1 gm OP BID 14 Days #30 oint...g. Transmission Status: Pending to [facility] Referrals: Andres Osman MD [Primary Care Provider] - - Critical Care Critical Care Time: No Attestation: On 12/28/19, the high probability of a clinically significant, sudden or life threatening deterioration of the following system(s) required my full and direct attention, intervention and personal management. The time I documented below is in addition to time spent performing reported procedures but includes the following listed in this critical care notation. Medical Decision Making - Medical Records Medical records reviewed: Yes: I reviewed the patient's medical records. - Paul Inquiry Pt receiving controlled substance: No Vital Signs: 12/28/19 15:04 Temperature 98.2 F Temperature Source Temporal Artery Scan Pulse Rate [Right] 56 L Respiratory Rate 17 Blood Pressure [Right Arm] 112/81 Blood Pressure Mean [Right Arm] 91 02 Sat by Pulse Oximetry 98 - Lab Data Lab Results 12/28/19 15:19: WBC 8.9, RBC 3.98 L, Hgb 12.6 L, Hct 38.8 L, MCV 97.4 H, MCH 31.6 H, MCHC 32.4, RDW 13.1, Plt Count 258, MPV 6.9 L, Neut % (Auto) 59.2, Lymph % (Auto) 28.9, [place] % (Auto) 7.7, Eos % (Auto) 3.5, Baso % (Auto) 0.6, Neut # (Auto) 5.3, Lymph # (Auto) 2.6, [place] # (Auto) 0.7, Eos # (Auto) 0.3, Baso # (Auto) 0.1 12/28/19 15:19: Sodium 139, Potassium 5.0, Chloride 104, Carbon Dioxide 30, Anion Gap 10.0, BUN 31 H, Creatinine 1.30 H, Estimated Creat Clear 52, Estimated GFR 53 L, Est GFR ( Amer) 64, Glucose 108 H, Calcium 9.5, Total Bilirubin 0.4, AST 21, ALT 6 L, Alkaline Phosphatase 93, Total Protein 7.1, Albumin 3.9, Globulin 3.2, Albumin/Globulin Ratio 1.2 12/28/19 15:19: Urine Color Yellow, Urine Appearance Sl cloudy, Urine pH 6.5, Ur Specific [place] 1.020, Urine Protein Negative, Urine Glucose (UA) Negative, Urine Ketones Negative, Urine Blood 1+, Urine Nitrate Negative, Urine Bilirubin Negative, Urine Urobilinogen 0.2, Ur Leukocyte Esterase 1+ A, Urine RBC 5-10, Urine WBC 10-20, Ur Squamous Epith Cells Occasional, Urine Bacteria 1+ Result diagrams: 12/28/19 15:19 12/28/19 15:19 Orders (Tests/Meds): ORDERS Category Date Time Status Urine Culture Stat Micro 12/28/19 15:19 Received Urine Culture(cathed specimen) Stat Micro 12/28/19 18:25 Ordered Medical Decision Narrative: Patient 79 y/o old male with significant past history. [facility] and sounds the patient suffers from mechanical fall. As we are unable get a clear history from [facility] staff as this was an unwitnessed fall patient unable to give clear details work-up will be initiated including CT imaging to ensure no acute ICH/skull fracture any cervical spine fracture/subluxation.. Chest, knee, pelvis will also be obtained to ensure no bony abnormality. Basic labs also checked to ensure no significant hematologic metabolic disturbance such as anemia that could precipitated patient's fall. CT imaging of patient's head and neck unremarkable for acu
[2019-12-28 18:36] VITALS: BP 140/85; PULSE 87; RESP 18; TEMP 36.7; O2SAT 99
== END 2019-12-28 18:37 | disposition home or self-care (01) ==
PROVIDERS: Emergency Provider Emergency Medicine; PCP Emergency Medicine
DX: S00.90XA Unspecified superficial injury of unspecified part of head, initial encounter (principal); H10.32 Unspecified acute conjunctivitis, left eye; M25.561 Pain in right knee; M54.5 Low back pain; W01.0XXA Fall on same level from slipping, tripping and stumbling without subsequent striking against object, initial encounter; Y92.129 Unspecified place in nursing home as the place of occurrence of the external cause; I10 Essential (primary) hypertension; F03.90 Unspecified dementia, unspecified severity, without behavioral disturbance, psychotic disturbance, mood disturbance, and anxiety; I48.20 Chronic atrial fibrillation, unspecified; E78.5 Hyperlipidemia, unspecified; Z88.2 Allergy status to sulfonamides; Z79.899 Other long term (current) drug therapy
CPT/HCPCS: 70450; 71045; 72125; 72170; 73562; 80053; 81001; 85025; 87086; 87088; 87186; 99283

== ENCOUNTER 2020-02-05 07:52 | Inpatient (IN) | payer MEDICARE, MEDICAID, SELFPAY ==
[2020-02-05 07:54] VITALS: BP 136/66; PULSE 79; RESP 20; TEMP 37.5; O2SAT 94; BMI 26.5
[2020-02-05 08:15] VITALS: BMI 26.5
--- NOTE | 2020-02-05 08:19 | XR_ITS ---
PROCEDURE: XR CHEST PORTABLE CLINICAL HISTORY: sob COMPARISON: CT CTAC CTA-CHEST from 10/23/2016 CR CXR1VP XR chest portable from 04/15/2018 CR XR CHEST 2V from 11/25/2018 CR XR CHEST AP from 12/28/2019 FINDINGS: This is a somewhat poor inspiratory effort. The lung scott are grossly clear of infiltrate. Cardiac size is normal and vascularity is normal and there is no obvious pleural fluid. There may be minimal atelectasis at the left costophrenic angle. There are mild degenerate changes of both shoulders. IMPRESSION: No acute findings. Dictated by: Dr. Buzz Perez MD 02/05/2020 09:14 Dr. Buzz Perez MD in [place] 02/05/2020 09:14
[2020-02-05 08:30] LABS: Lactic Acid 1.3 mmol/L (0.7-2.1)
[2020-02-05 08:35] LABS: Basophils % 0.2 % (0.1-2.0); Eosinophils # 0.1 K/mm3 (0.0-0.4); Eosinophils % 0.3 % (0.1-12.0); Hematocrit 43.6 % (42.0-52.0); Lymphocytes # 2.2 K/mm3 (0.7-4.5); Lymphocytes % 10.5 % (10-50); Mean Corpuscular HGB Conc 32.2 g/dL (31.8-35.4); Mean Corpuscular Hemoglobin 31.2 pg (27.0-31.2); Mean Corpuscular Volume 96.7 fl (80-94); Mean Platelet Volume 7.5 fl (7.4-10.4); Monocytes # 1.1 K/mm3 (0.1-1.0); Monocytes % 5.1 % (1.7-9.3); Neutrophils # 17.3 K/mm3 (1.8-7.8); Neutrophils % 83.9 % (37.0-80.0); Platelet Count 355 K/mm3 (142-424); Red Cell Distribution Width 13.1 % (11.5-17.5); White Blood Count 20.7 K/mm3 (4.8-10.8)
[2020-02-05 08:37] LABS: Chloride 109 mmol/L (98-107); Potassium 3.9 mmoL/L (3.5-5.1); Sodium 147 mmol/L (136-145)
[2020-02-05 08:38] LABS: MANUAL DIFFERENTIAL MANUAL DIFFERENTIAL (MANUAL DIFF)
[2020-02-05 08:39] LABS: Blood Urea Nitrogen 39 mg/dl (9-20)
[2020-02-05 08:40] LABS: Alanine Aminotransferase 11 U/L (12-78); Alkaline Phosphatase 129 U/L (38-126); Anion Gap 11.9 mEq/L (5-15); Aspartate Amino Transferase 29 U/L (17-59); Bilirubin,Total 0.8 mg/dl (0.2-1.3); Carbon Dioxide 30 mmol/L (22.0-30.0); Creatinine Clearance Estimated 50 mL/min (50-200); Estimated Glomerular Filt Rate 49 ml/min (>60); GFR (African American) 59 ML/MIN (>60); Glucose 123 mg/dl (74-100)
[2020-02-05 08:57] LABS: Procalcitonin 0.172 ng/mL (0.0-2.0)
--- NOTE | 2020-02-05 08:58 | CT_ITS ---
PROCEDURE: CT HEAD/BRAIN WO CON CLINICAL INDICATION: AMS Altered mental status, altered level of consciousness, confusion, disorientation COMPARISON: CT CT HEAD/BRAIN WO CON from 12/28/2019 TECHNIQUE: Axial images obtained. All CT scans at the facility use one or more dose reduction, viz: automated exposure control, ma/kV adjustment per patient size (including targeted exams where dose is matched to indication, i.e. head), or iterative reconstruction technique. FINDINGS: No midline shift, mass effect, intracranial hemorrhage, hydrocephalus, or extra-axial fluid collection is evident. 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 No mastoid effusion. There is mild mucosal thickening of the ethmoid sinuses. Please see facial CT report regarding right-sided facial cellulitis and parotiditis IMPRESSION: No acute intracranial finding Dictated by: Pete Archuleta MD 02/05/2020 16:28 Pete Archuleta MD in [place] 02/05/2020 16:28
--- NOTE | 2020-02-05 09:00 | HMH.EDAMS ---
ED Disposition Clinical Impression: Pneumonia due to COVID-19 virus, Sialadenitis, Acute kidney injury, Hypernatremia, Dehydration Altered mental status Qualifiers: Altered mental status type: somnolence Qualified Code(s): R40.0 - Somnolence Disposition: Admitted As Inpatient Condition on Discharge: Fair - Critical Care Critical Care Time: No Attestation: On 02/05/20, the high probability of a clinically significant, sudden or life threatening deterioration of the following system(s) required my full and direct attention, intervention and personal management. The time I documented below is in addition to time spent performing reported procedures but includes the following listed in this critical care notation. Medical Decision Making - Medical Records Medical records reviewed: Yes: I reviewed the patient's medical records. MR Comment: Pt noted history of covid positive and baseline mental status as talking and alert. - Paul Inquiry Pt receiving controlled substance: No Vital Signs: 02/05/20 07:54 Temperature 99.5 F Temperature Source Rectal Pulse Rate [Radial] 79 Respiratory Rate 20 Blood Pressure [Right Arm] 136/66 Blood Pressure Mean [Right Arm] 89 Blood Pressure Position [Right Arm] Sitting 02 Sat by Pulse Oximetry 94 L Oxygen Delivery Method Room Air - Lab Data Lab Results 02/05/20 08:00: WBC 20.7 H*, RBC 4.50 L, Hgb 14.0 L, Hct 43.6, MCV 96.7 H, MCH 31.2, MCHC 32.2, RDW 13.1, Plt Count 355, MPV 7.5, Neut % (Auto) 83.9 H, Lymph % (Auto) 10.5, [place] % (Auto) 5.1, Eos % (Auto) 0.3, Baso % (Auto) 0.2, Neut # (Auto) 17.3 H, Lymph # (Auto) 2.2, [place] # (Auto) 1.1 H, Eos # (Auto) 0.1, Baso # (Auto) 0.0, Total Counted 100, Neutrophils % (Manual) 78 H, Lymphocytes % (Manual) 16, Monocytes % (Manual) 6, Platelet Estimate Normal, RBC Morphology Normal 02/05/20 08:00: Lactate 1.3 02/05/20 08:00: Sodium 147 H, Potassium 3.9, Chloride 109 H, Carbon Dioxide 30, Anion Gap 11.9, BUN 39 H, Creatinine 1.40 H, Estimated Creat Clear 50, Estimated GFR 49 L, Est GFR ( Amer) 59, Glucose 123 H, Calcium 10.0, Total Bilirubin 0.8, AST 29, ALT 11 L, Alkaline Phosphatase 129 H, Total Protein 8.0, Albumin 4.0, Globulin 4.0 H, Albumin/Globulin Ratio 1.0 L 02/05/20 08:00: Procalcitonin 0.172 Result diagrams: 02/05/20 08:00 02/05/20 08:00 Orders (Tests/Meds): ED MEDICATIONS Generic Name Dose Route Start Last Admin Trade Name Freq PRN Reason Stop Dose Admin Clindamycin Phosphate 600 mg/ 104 mls @ 100 mls/hr 02/05/20 09:30 Sodium Chloride IV 02/19/20 09:29 Q8H JOSE Protocol Ampicillin Sodium/Sulbactam 50 mls @ 100 mls/hr 02/05/20 09:30 Sodium 1.5 gm/ Sodium Chloride IV 02/19/20 09:29 Q6H JOSE Protocol Discontinued Medications Generic Name Dose Route Start Last Admin Trade Name Freq PRN Reason Stop Dose Admin Methylprednisolone Sodium Succinate 125 mg 02/05/20 09:22 Methylprednisolone Sod Succ 125mg Vial IV 02/05/20 09:23 ONCE ONE ORDERS Category Date Time Status CT head/brain wo con Stat Cat Scan 02/05/20 08:58 Ordered Covid-19 IgG/IgM ([facility]) Stat Lab 02/05/20 08:00 Received Covid-19 Nasal PCR ([facility]) Routine Lab 02/05/20 08:26 Ordered Full Resp Panel w/COVID ([facility]) Routine Lab 02/05/20 08:34 Ordered Blood Culture Stat Micro 02/05/20 08:00 Received - Radiology Data #1 Image(s): Chest Image Reviewed: Yes I reviewed the patient's radiology image Preliminary Findings: Abnormal mild interstitial disease with right lower airspace disease and scattered atelectasis. Medical Decision Narrative: 79-year-old male [facility] with [facility] status Covid positive hypoxia and facial abscess. On exam the facial abscess is consistent with a parotid sialadenitis that is draining purulent material into the mouth. Patient is only intermittently hypoxic and is sleeping comfortably however with decreased mental status. CT sc
--- NOTE | 2020-02-05 09:07 | PC.NURSE ---
care management called for room placement
[2020-02-05 09:20] LABS: Lymphocytes % 16 % (10-50); Monocytes % 6 % (2-9); Neutrophils % 78 % (42-76); Platelet Estimate Normal; RBC Morphology Normal; Total Cells Counted 100
--- NOTE | 2020-02-05 09:22 | CT_ITS ---
PROCEDURE: CT FACIAL BONES W CON CLINICAL HISTORY: facial abscess Pain and swelling in the right-sided face COMPARISON: No exams were available for comparison TECHNIQUE: Axial images obtained with sagittal and coronal reformats. All CT scans at the facility use one or more dose reduction, viz: automated exposure control, ma/kV adjustment per patient size (including targeted exams where dose is matched to indication, i.e. head), or iterative reconstruction technique. FINDINGS: There is a mild degree of motion artifact enhanced images. There is diffuse swelling of the right parotid gland both superficial and deep lobe there is also some slight increased soft tissue density along the right pterygoid process. No localized abscess is evident. There is mild thickening of the soft tissues in the right external auditory canal region as well. There is some nonspecific calcifications in the external auditory canal on both sides within the subcutaneous tissues. There are few scattered small lymph nodes but no dominant adenopathy. No sinus air-fluid level. There is mild mucosal thickening of the ethmoid sinuses. The patient is edentulous. With heterogeneous density. There is also some stranding of the subcutaneous tissues at the region of the parotid. No obvious abscess is evident. No obvious sialolith. The posterior aspect of the masseter muscle on the right is somewhat ill-defined. IMPRESSION: Heterogeneous enlargement and enhancement of the right parotid gland consistent with parotitis along with some subcutaneous increased density in the right facial area consistent with cellulitis. The soft tissue swelling involves the deep lobe of the parotid gland on the right with some thickening of the tissues in the right parapharyngeal/lateral parapharyngeal space. No obvious abscess Dictated by: Pete Archuleta MD 02/05/2020 16:26 Pete Archuleta MD in [place] 02/05/2020 16:26
[2020-02-05 09:28] LABS: Adenovirus,PCR Not Detected (NotDetected); Bordetella Pertussis Not Detected (NotDetected); Chlamydophila Pneumoniae, PCR Not Detected (NotDetected); Coronavirus 19, PCR Not Detected (NotDetected); Coronavirus 229E Not Detected (NotDetected); Coronavirus NL63 Not Detected (NotDetected); Coronavirus OC43 Not Detected (NotDetected); Coronovirus HKU1,PCR Not Detected (NotDetected); Human Metapneumovirus Not Detected (NotDetected); Influenza A, PCR Not Detected (NotDetected); Influenza AH1, 2009 Not Detected (NotDetected); Influenza AH1, PCR Not Detected (NotDetected); Influenza AH3,PCR Not Detected (NotDetected); Influenza B, PCR Not Detected (NotDetected); Mycoplasma Pneumoniae, PCR Not Detected (NotDetected); Parainfluenza 1, PCR Not Detected (NotDetected); Parainfluenza 2, PCR Not Detected (NotDetected); Parainfluenza 3, PCR Not Detected (NotDetected); Parainfluenza 4, PCR Not Detected (NotDetected); Respiratory Syncytial Virus Not Detected (NotDetected); Rhinovirus/Enterovirus Not Detected (NotDetected)
[2020-02-05 09:33] LABS: Coronavirus 19 IgG Antibody Positive (Negative); Coronavirus 19 IgM Antibody Negative (Negative)
[2020-02-05 10:25] VITALS: BP 129/78; PULSE 87; RESP 20; TEMP 37.2; O2SAT 94
[2020-02-05 10:35] VITALS: BP 158/80; PULSE 90; RESP 17; TEMP 37.7; O2SAT 95
[2020-02-05 11:08] VITALS: BMI 20.2
[2020-02-05 11:24] VITALS: BMI 20.2
--- NOTE | 2020-02-05 11:24 | INFXCTL.NOTE ---
Patient with positive COVID-19 test result from custodial. We will continue positive status at this time with airborne, contact, and eye protection isolation precautions.
--- NOTE | 2020-02-05 11:52 | PC.NURSE ---
admission interventions are limited. use of patient shelter papers to assist
--- NOTE | 2020-02-05 12:00 | HMH.HP ---
*Admission Date: 02/05/20 *Chief complaint: weakness *History of present illness: 79-year-old male who presents from [facility] with altered mental status Covid positive, hypoxia and facial abscess. Patient is only intermittently hypoxic and is sleeping comfortably however with decreased mental status while in ed. Patient will be started on IV clindamycin 600 mg every 8 hr and Unasyn IV 1.5 g every 6 hours. Patient is given Solu-Medrol 125 mg IV. Patient was then admitted to the Covid unit for further evaluation. Discussed pt with dr Acevedo and he will see pt later today. [facility] History I have reviewed the patient's past medical history: Yes Medical History: Reports:: Atherosclerotic Heart Disease, Atrial Fibrillation, Coronary Artery Disease, Dementia, Hiatal Hernia, Hyperlipidemia, Hypertension Denies:: Diabetes Mellitus Type 1, Diabetes Mellitus Type 2 *Have you ever received a pneumonia vaccine?: Yes *Have you received a flu vaccine this season?: Yes Other Medical History: Reports: Arthritis Other Surgeries: Yes: Colonoscopy, Other Amputation: No Fractures: No - *Social History Smoking Status: Unknown if ever smoked Alcohol Intake: never Substance Use Type: denies use *Occupational Status:: other Housing: other Household Members: other *Travel in the last 8 weeks: None Family Hx:: Unable to obtain Review of Systems - Review of Systems Review of systems:: pertinent systems reviewed and negative unless documented below - Constitutional Reports fever(s), Reports weakness - Eyes Denies dry eyes - ENT Reports other, Denies bleeding gums - *Cardiovascular Reports shortness of breath, Denies chest pain at rest - *Respiratory Reports cough, Reports shortness of breath - *Gastrointestinal Denies nausea, Denies vomiting - *Genitourinary Denies urinary urgency - *Musculoskeletal Reports muscle weakness, Denies joint pain - Integumentary/Breasts Reports rash, Denies bleeding lesions - *Neurologic Denies abnormal hearing - Psychiatric Denies lack of enjoyment - Endocrine Denies excessive sweating - Hematologic/Lymphatic Denies easy bruising - Allergic/Immunologic Denies itchy eyes Meds Home Medications Medication Instructions Recorded Confirmed Type acetaminophen 500 mg tablet 500 mg PO Q4HP PRN 04/23/17 02/05/20 History aspirin 81 mg tablet,delayed 81 mg PO DAILY 04/23/17 02/05/20 History release lactulose 10 gram oral packet 30 ml PO DAILYP PRN 04/23/17 02/05/20 History metoprolol succinate 50 mg 50 mg PO DAILY 04/23/17 02/05/20 History tablet,extended release 24 hr oxybutynin chloride 10 mg 10 mg PO DAILY 04/23/17 02/05/20 History tablet,extended release 24 hr pravastatin 40 mg tablet 40 mg PO QHS 04/23/17 02/05/20 History ranitidine HCl 150 mg capsule 150 mg PO QHS 04/23/17 02/05/20 History sennosides 8.6 mg tablet 2 tab PO BID 04/23/17 02/05/20 History tamsulosin 0.4 mg capsule 0.4 mg PO HS 04/23/17 02/05/20 History white petrolatum-mineral oil 83 1 applic OPHTHALMIC DAILY 04/23/17 02/05/20 History %-15 % eye ointment Dextran 70/Hypromellose 1 each OP TID 04/15/18 02/05/20 History [Artificial Tears] Olopatadine HCl [Pataday] 1 drp OP BID 04/15/18 02/05/20 History Propylene Glycol/Peg 400/Pf 1 each OP HS 04/15/18 02/05/20 History [Systane 0.3-0.4% Eye Drops] Tramadol HCl [Tramadol 50mg 50 mg PO TID 04/15/18 02/05/20 History Tab] Vit C/Vit E AC/Lut/Copper/Zinc 1 each PO DAILY 04/15/18 02/05/20 History [Preservision Lutein Softgel] guaiFENesin [Robitussin 200mg/10mL 200 mg PO Q4HP PRN 04/15/18 02/05/20 History Syrup Udc] ondansetron HCL [Zofran 4mg Tab*] 4 mg PO Q8HP PRN 04/15/18 02/05/20 History Carbidopa/Levodopa 2 tab PO QID 04/16/18 02/05/20 History [Carbidopa/Levodopa 25/100mg Tablet] Fluoxetine HCl [Prozac 20mg 20 mg PO DAILY 04/16/18 02/05/20 History Capsule] Rivastigmine [Exelon] 13.3 mg TD DAILY 04/16/18 02/05/20
--- NOTE | 2020-02-05 12:05 | HMH.PHAINT ---
PER JERILYN, NOT STARTING REMDESIVIR AT THIS TIME. -DAMEON CONRAD, KUNALD
--- NOTE | 2020-02-05 12:13 | HMH.GSCON ---
*Admission Date: 02/05/20 *Reason for consult:: right sided facial swelling *History of present illness: xdays [facility] History Medical History: Reports:: Atherosclerotic Heart Disease, Atrial Fibrillation, Coronary Artery Disease, Dementia, Hiatal Hernia, Hyperlipidemia, Hypertension Denies:: Diabetes Mellitus Type 1, Diabetes Mellitus Type 2 *Have you ever received a pneumonia vaccine?: Yes *Have you received a flu vaccine this season?: Yes Other Medical History: Reports: Arthritis, Cataracts Other Surgeries: Yes: Colonoscopy, Other Amputation: No Fractures: No - *Social History Smoking Status: Unknown if ever smoked Alcohol Intake: never Substance Use Type: denies use *Occupational Status:: other Housing: custodial Household Members: other *Travel in the last 8 weeks: None Family Hx:: Unable to obtain [facility] Home Medications Medication Instructions Recorded Confirmed Type acetaminophen 500 mg tablet 500 mg PO Q4HP PRN 04/23/17 02/05/20 History aspirin 81 mg tablet,delayed 81 mg PO DAILY 04/23/17 02/05/20 History release lactulose 10 gram oral packet 30 ml PO DAILYP PRN 04/23/17 02/05/20 History metoprolol succinate 50 mg 50 mg PO DAILY 04/23/17 02/05/20 History tablet,extended release 24 hr oxybutynin chloride 10 mg 10 mg PO DAILY 04/23/17 02/05/20 History tablet,extended release 24 hr pravastatin 40 mg tablet 40 mg PO QHS 04/23/17 02/05/20 History ranitidine HCl 150 mg capsule 150 mg PO QHS 04/23/17 02/05/20 History sennosides 8.6 mg tablet 2 tab PO BID 04/23/17 02/05/20 History tamsulosin 0.4 mg capsule 0.4 mg PO HS 04/23/17 02/05/20 History white petrolatum-mineral oil 83 1 applic OPHTHALMIC DAILY 04/23/17 02/05/20 History %-15 % eye ointment Dextran 70/Hypromellose 1 each OP TID 04/15/18 02/05/20 History [Artificial Tears] Olopatadine HCl [Pataday] 1 drp OP BID 04/15/18 02/05/20 History Propylene Glycol/Peg 400/Pf 1 each OP HS 04/15/18 02/05/20 History [Systane 0.3-0.4% Eye Drops] Tramadol HCl [Tramadol 50mg 50 mg PO TID 04/15/18 02/05/20 History Tab] Vit C/Vit E AC/Lut/Copper/Zinc 1 each PO DAILY 04/15/18 02/05/20 History [Preservision Lutein Softgel] guaiFENesin [Robitussin 200mg/10mL 200 mg PO Q4HP PRN 04/15/18 02/05/20 History Syrup Udc] ondansetron HCL [Zofran 4mg Tab*] 4 mg PO Q8HP PRN 04/15/18 02/05/20 History Carbidopa/Levodopa 2 tab PO QID 04/16/18 02/05/20 History [Carbidopa/Levodopa 25/100mg Tablet] Fluoxetine HCl [Prozac 20mg 20 mg PO DAILY 04/16/18 02/05/20 History Capsule] Rivastigmine [Exelon] 13.3 mg TD DAILY 04/16/18 02/05/20 History gabapentin 100 mg capsule 100 mg PO BID #60 cap 12/16/19 02/05/20 Rx Amoxicillin [Amoxicillin 500mg Tab] 500 mg PO TID 02/05/20 02/05/20 History Erythromycin Base [Erythromycin 1 gm OP BID 02/05/20 02/05/20 History 1gm opth ointment] Mirtazapine [Remeron 15mg tablet] 15 mg PO HS 02/05/20 02/05/20 History Rivastigmine [Exelon 4.6mg/24hr 13.3 mg TD DAILY 02/05/20 02/05/20 History Patch] dilTIAZem HCL [Cardizem CD 120mg 120 mg PO DAILY 02/05/20 02/05/20 History Cap] polyethylene glycoL 3350 [Miralax 17 gm PO DAILY 02/05/20 02/05/20 History 17gm Packet] Allergies Allergy/AdvReac Type Severity Reaction Status Date / Time Sulfa (Sulfonamide Allergy Unknown Verified 12/06/19 13:15 Antibiotics) [SULFA (SULFONAMIDE ANTIBIOTICS)] sulfamethoxazole Allergy Unknown Verified 12/06/19 13:15 [From Bactrim] trimethoprim [From Bactrim] Allergy Unknown Verified 12/06/19 13:15 Exam Vital signs and Labs for Last 24 Hours: Temp Pulse Resp BP Pulse Ox 99.8 F H 90 17 158/80 H 95 02/05/20 10:35 02/05/20 10:35 02/05/20 10:35 02/05/20 10:35 02/05/20 10:35 Laboratory Results - last 24 hr 02/05/20 08:00: WBC 20.7 H*, RBC 4.50 L, Hgb 14.0 L, Hct 43.6, MCV 96.7 H, MCH 31.2, MCHC 32.2, RDW 13.1, Plt Count 355, MPV 7.5, Neut % (Auto) 83.9 H, Lymph % (Auto) 10.5, [place] % (Auto)
[2020-02-05 12:50] VITALS: BP 142/71; PULSE 78; RESP 17; TEMP 38.1; O2SAT 95
--- NOTE | 2020-02-05 13:15 | DIET.NUTRFU ---
Nutritional assessment, IP completed. Pt very high risk inadequate energy intakes rt predicted chewing difficulty/pain with sialadenitis, in addition to COVID dx with reported poor intakes in setting of dementia. Have spoken with Bessy, he is on soft mechanical diet with thin liquids there, diet changed. They for some reason were unable to identify if he is given chop or ground consistency but RN stated think it is ground. Ground consistency given for safety. He requires full assistance feeding. Greatly appreciate encouragement/cueing efforts from nursing. Energy/protein supplements added to diet order TID dt predicted minimal intakes, will monitor intakes/acceptance to adjust as indicated.
--- NOTE | 2020-02-05 13:20 | PC.NURSE ---
spoke with pharmacy who stated primary md did not want to start the remdesivir as of now.
--- NOTE | 2020-02-05 14:02 | P.CONPHA_ITS ---
[facility] Pharmacy VTE Monitoring - Patient Demographics Admission date: 02/05/20 Report Date: 02/05/20 Time: 14:02 Allergies/Adverse Reactions: Patient Allergies Sulfa (Sulfonamide Antibiotics) [SULFA (SULFONAMIDE ANTIBIOTICS)] Allergy (Unknown, Verified 12/06/19 13:15) sulfamethoxazole [From Bactrim] Allergy (Unknown, Verified 12/06/19 13:15) trimethoprim [From Bactrim] Allergy (Unknown, Verified 12/06/19 13:15) Height: 1.78 m Weight: 64 kg Patient Problems: Current Active Problems Hyperlipidemia (Acute) Pneumonia due to COVID-19 virus (Acute) Sialadenitis (Acute) Altered mental status (Acute) Acute kidney injury (Acute) Hypernatremia (Acute) Dehydration (Acute) Dementia in other diseases classified elsewhere with behavioral disturbance (Chronic) Parkinson's disease (Chronic) - VTE Risk Labs: VTE Related Lab Results Hgb 14.0 g/dL (14.1-18.0) L 02/05/20 08:00 Hct 43.6 % (42.0-52.0) 02/05/20 08:00 Plt Count 355 K/mm3 (142-424) 02/05/20 08:00 BUN 39 mg/dl (9-20) H 02/05/20 08:00 Creatinine 1.40 mg/dl (0.66-1.25) H 02/05/20 08:00 Estimated Creat Clear 50 mL/min (50-200) 02/05/20 08:00 VTE Risk Level: Low Risk - Prophylaxis VTE Prophylaxis Ordered?: Yes Types of VTE Prophylaxis: TEDS Knee High, Pharmacological Location of Applied Device: Bilateral Lower Extremeties Pharmacologic Type: Enoxaparin
--- NOTE | 2020-02-05 14:20 | PC.NURSE ---
spoke with daughter/ one of his poa's about code status and consent for pictures. she requested patient to be a DNR and gave the okay to take pictures as needed
--- NOTE | 2020-02-05 14:28 | PC.WOUNDNOTE ---
Wound Location: r cheek cellulitis Length:6cm Width:3cm Depth: Undermining Y/N: Tunneling cm: Granulation %: Slough/necrotic tissue %: Inflammation/swelling Y/N:y Pain and/or tenderness Y/N:y Exudate: Serosanguinous Sanguinous Serosanguinous Seropurulent Purulent Color: Clear [place] Cloudy/milky [place] Red Green Yellow Brown Rowan Blue Consistency: Thick Thin Amount: None Scant Small Moderate Large Odor Y/N:
--- NOTE | 2020-02-05 14:29 | PC.NURSE ---
frontal view of swelling/redness
--- NOTE | 2020-02-05 14:30 | PC.WOUNDNOTE ---
Wound Location: l eye redness Length: Width: Depth: Undermining Y/N: Tunneling cm: Granulation %: Slough/necrotic tissue %: Inflammation/swelling Y/N:n Pain and/or tenderness Y/N:n Exudate: Serosanguinous Sanguinous Serosanguinous Seropurulent Purulent Color: Clear Jackeline Cloudy/milky [place] Red-yes Green Yellow Brown Rowan Blue Consistency: Thick Thin Amount: None Scant Small Moderate Large Odor Y/N:
--- NOTE | 2020-02-05 14:59 | HMH.PHAINT ---
MEDICATION RECONCILIATION COMPLETED ON PATIENT USING MAR FROM [facility]. -DAMEON CONRAD, KUNALD
--- NOTE | 2020-02-05 15:16 | PC.NURSE ---
late entry, dr salinas rounded on patient, suggested solumedrol 60 q6h, remdesivir, and warm saline compresses every hour for 15 mins for the next 24 hours. stated the area appeared to be cellulitis rather than an abscess. did relay santos recs to md office, and spoke with pharmacy.
[2020-02-05 15:24] VITALS: BP 160/84; PULSE 86; RESP 18; TEMP 37.7; O2SAT 95
--- NOTE | 2020-02-05 15:25 | PC.NURSE ---
since arrival to floor patient has done well. does not appear to have pain except when swollen area to right side of face is touched. warm saline compresses have been done. patient is being turned q2h. noted some chronic redness to the l eye. patient attempts to speak but unable to hear what is being said,and at times has been combative. remains on room air.
--- NOTE | 2020-02-05 16:08 | PC.NURSE ---
1545 ct at bedside to take patient downstairs.
[2020-02-05 20:00] VITALS: BP 141/78; PULSE 101; RESP 18; TEMP 37.7; O2SAT 93
[2020-02-06] VITALS (8 sets, daily range): BP systolic 119–165; BP diastolic 72–93; PULSE 49–109; RESP 16–20; TEMP 36.6–37.3; O2SAT 93–98; BMI 20.5
--- NOTE | 2020-02-06 03:53 | PC.NURSE ---
lungs CTA. 02 sat in 92-94% on RA. saline compresses applied to face as ordered. pt voids per attends. turned Q2. bed alarm activated.
[2020-02-06 06:33] LABS: Basophils % 0.1 % (0.1-2.0); Hematocrit 40.9 % (42.0-52.0); Hemoglobin 13.1 g/dL (14.1-18.0); Lymphocytes # 1.4 K/mm3 (0.7-4.5); Lymphocytes % 8.1 % (10-50); Mean Corpuscular Hemoglobin 31.1 pg (27.0-31.2); Mean Corpuscular Volume 97.1 fl (80-94); Mean Platelet Volume 7.9 fl (7.4-10.4); Monocytes # 0.6 K/mm3 (0.1-1.0); Monocytes % 3.2 % (1.7-9.3); Neutrophils # 15.1 K/mm3 (1.8-7.8); Neutrophils % 88.5 % (37.0-80.0); Platelet Count 345 K/mm3 (142-424); Red Blood Count 4.21 M/mm3 (4.60-6.20)
[2020-02-06 07:05] LABS: Chloride 112 mmol/L (98-107); Sodium 147 mmol/L (136-145)
[2020-02-06 07:06] LABS: Potassium 3.8 mmoL/L (3.5-5.1)
[2020-02-06 07:09] LABS: Anion Gap 16.8 mEq/L (5-15); Blood Urea Nitrogen 32 mg/dl (9-20); Calcium 9.1 mg/dl (8.4-10.2); Carbon Dioxide 22 mmol/L (22.0-30.0); Creatinine Clearance Estimated 42 mL/min (50-200); Estimated Glomerular Filt Rate 53 ml/min (>60); GFR (African American) 64 ML/MIN (>60); Glucose 133 mg/dl (74-100)
[2020-02-06 07:10] LABS: MANUAL DIFFERENTIAL MANUAL DIFFERENTIAL (MANUAL DIFF)
[2020-02-06 07:44] LABS: Lymphocytes % 18 % (10-50); Monocytes % 3 % (2-9); Neutrophils % 79 % (42-76); Platelet Estimate Normal; RBC Morphology Normal; Total Cells Counted 100
--- NOTE | 2020-02-06 09:17 | PC.NURSE ---
did speak with md about patient home medications. went over medications with md and he stated to reorder his medications from assisted. also relayed to him about the chronic conjuntivitis of eye and stated give the erythomycin he takes on eye
--- NOTE | 2020-02-06 09:40 | HMH.ACPN2 ---
Internal Medicine - PN: Subj *Date: 02/07/20 *Time: 08:03 Interval history: pt doing better on abx - no fever Exam Vital signs and Labs for Last 24 Hours: Temp Pulse Resp BP Pulse Ox 98.8 F 106 H 17 138/88 96 02/06/20 08:49 02/06/20 08:49 02/06/20 08:49 02/06/20 08:49 02/06/20 08:49 Laboratory Results - last 24 hr 02/05/20 09:15: Chlamy pneumoniae PCR Not detected, Adenovirus (PCR) Not detected, B. pertussis DNA (PCR) Not detected, Coronavirus OC43 (PCR) Not detected, Coronavirus HKU1 (PCR) Not detected, Coronavirus 229E (PCR) Not detected, SARS-CoV-2 (PCR) Not detected, Coronavirus NL63 (PCR) Not detected, Human Metapneumovir PCR Not detected, Influenza A (H1) PCR Not detected, Influ A (H1N1/09) PCR Not detected, Influenza A (H3) PCR Not detected, Influenza Type A (PCR) Not detected, Influenza Type B (PCR) Not detected, M. pneumoniae (PCR) Not detected, Parainfluenza 1 (PCR) Not detected, Parainfluenza 2 (PCR) Not detected, Parainfluenza 3 (PCR) Not detected, Parainfluenza 4 (PCR) Not detected, RSV (PCR) Not detected, Entero/Rhino (PCR) Not detected 02/06/20 06:15: Sodium 147 H, Potassium 3.8, Chloride 112 H, Carbon Dioxide 22 D, Anion Gap 16.8 H, BUN 32 H, Creatinine 1.30 H, Estimated Creat Clear 42, Estimated GFR 53 L, Est GFR ( Amer) 64, Glucose 133 H, Calcium 9.1 02/06/20 06:15: WBC 17.0 H, RBC 4.21 L, Hgb 13.1 L, Hct 40.9 L, MCV 97.1 H, MCH 31.1, MCHC 32.0, RDW 13.0, Plt Count 345, MPV 7.9, Neut % (Auto) 88.5 H, Lymph % (Auto) 8.1 L, [place] % (Auto) 3.2, Eos % (Auto) 0.0 L, Baso % (Auto) 0.1, Neut # (Auto) 15.1 H, Lymph # (Auto) 1.4, [place] # (Auto) 0.6, Eos # (Auto) 0.0, Baso # (Auto) 0.0, Total Counted 100, Neutrophils % (Manual) 79 H, Lymphocytes % (Manual) 18, Monocytes % (Manual) 3, Platelet Estimate Normal, RBC Morphology Normal I & O for Last 24 hours: Intake & Output 02/03/20 02/04/20 02/05/20 02/06/20 11:59 11:59 11:59 11:59 Intake Total 1089 / 1089 Balance 1089 / 1089 Weight 141 lb 1.533 oz 143 lb 3.2 oz - Constitutional no acute distress - *Routine HEENT Exam Head: Present: normocephalic Eye: Present: EOMI, PERRL ENT: Present: mucous membranes dry - *Routine Neck Exam Present: supple - *Routine Respiratory Exam Present: decreased breath sounds - *Routine Cardiovascular Exam Present: RRR, murmur - *Routine Abdominal Exam Present: soft - *Routine Extremities Exam Absent: calf tenderness - *Routine Skin Exam Present: intact - *Routine Neurological Exam Present: CN II-XII intact. Absent: motor deficit - Routine Psychiatric Exam Present: normal affect Assessment and Plan (1) Altered mental status Status: Acute Qualifiers: Altered mental status type: somnolence Qualified Code(s): R40.0 - Somnolence Category: Medical Code(s): R41.82 - Altered mental status, unspecified (2) Pneumonia due to COVID-19 virus Status: Acute Category: Medical Code(s): U07.1 - COVID-19; J12.89 - Other viral pneumonia (3) Sialadenitis Status: Acute Category: Medical Code(s): K11.20 - Sialoadenitis, unspecified (4) Hyperlipidemia Status: Acute Category: Medical Code(s): E78.5 - Hyperlipidemia, unspecified (5) Dementia in other diseases classified elsewhere with behavioral disturbance Status: Chronic Category: Medical Code(s): F02.81 - Dementia in other diseases classified elsewhere with behavioral disturbance (6) Parkinson's disease Status: Chronic Category: Medical Code(s): G20 - Parkinson's disease (7) COVID-19 virus IgG antibody detected Status: Acute Category: Medical Code(s): Z01.84 - Encounter for antibody response examination (8) Renal insufficiency Status: Acute Category: Medical Code(s): N28.9 - Disorder of kidney and ureter, unspecified (9) SIRS (systemic inflammatory response syndrome) Status: Acute Category: Medical Code(s): R65.10 - Systemic inflammatory response syndrome (SIRS) of non-infecti
--- NOTE | 2020-02-06 18:30 | PC.NURSE ---
End of shift note. Patient continues on room air, sating between 93-95%. Patient remains inaudible this shift not able to report pain. Dr. Osman ordered his meds to be continued from the detention which were given this morning. Patient has tolerated taking his medication crushed in chocolate pudding. Patients facial swelling has decreased today, no drainage or puss noted. He had drank 360ml oral today. Patient remains total dependent, he has been turned q2h. He has had 3 wet attends this shift resulting in a linen change all 3 times. Patients room was cleaned and mopped by the nurse.
[2020-02-07 04:00] VITALS: BP 128/58; PULSE 77; RESP 20; TEMP 36.6; O2SAT 96
--- NOTE | 2020-02-07 04:20 | PC.NURSE ---
pt remains on RA O2 sats 95-97% lungs CTA. pt voids per attends, turned q2. pt received bath and bed change. pt has slept at intervals throughout shift. 20G RFA NS infusing @ 100ml/hr
[2020-02-07 05:00] VITALS: BMI 20.6
[2020-02-07 08:00] VITALS: BP 114/64; PULSE 100; RESP 16; TEMP 37; O2SAT 95; O2SAT 98
--- NOTE | 2020-02-07 09:20 | HMH.ACPN2 ---
Internal Medicine - PN: Subj *Date: 02/08/20 *Time: 07:44 Interval history: pt doing much better this am -more alert and has dec swelling face Exam Vital signs and Labs for Last 24 Hours: Temp Pulse Resp BP Pulse Ox 98.6 F 100 H 16 114/64 98 02/07/20 08:00 02/07/20 08:00 02/07/20 08:00 02/07/20 08:00 02/07/20 08:00 I & O for Last 24 hours: Intake & Output 02/04/20 02/05/20 02/06/20 02/07/20 11:59 11:59 11:59 11:59 Intake Total 2332 / 2332 2807 / 2807 Balance 2332 / 2332 2807 / 2807 Weight 141 lb 1.533 oz 143 lb 3.2 oz 144 lb 2 oz Microbiology Reports for the Last 24 Hours: Microbiology 02/05/20 08:00 Blood Blood Culture - Preliminary NO GROWTH AFTER 48 HOURS 02/05/20 08:00 Blood Blood Culture - Preliminary NO GROWTH AFTER 48 HOURS - Constitutional no acute distress - *Routine HEENT Exam Head: Present: normocephalic Eye: Present: EOMI, PERRL, conjunctivae pink ENT: Present: mucous membranes dry, other (rt parotid better) - *Routine Neck Exam Present: supple - *Routine Respiratory Exam Present: decreased breath sounds - *Routine Cardiovascular Exam Present: RRR - *Routine Abdominal Exam Present: soft - *Routine Extremities Exam Absent: calf tenderness - *Routine Skin Exam Present: intact - *Routine Neurological Exam Present: alert, CN II-XII intact - Routine Psychiatric Exam Present: unable to assess Assessment and Plan (1) Altered mental status Status: Acute Qualifiers: Altered mental status type: somnolence Qualified Code(s): R40.0 - Somnolence Category: Medical Code(s): R41.82 - Altered mental status, unspecified (2) Pneumonia due to COVID-19 virus Status: Acute Category: Medical Code(s): U07.1 - COVID-19; J12.89 - Other viral pneumonia (3) Sialadenitis Status: Acute Category: Medical Code(s): K11.20 - Sialoadenitis, unspecified (4) Hyperlipidemia Status: Acute Category: Medical Code(s): E78.5 - Hyperlipidemia, unspecified (5) Dementia in other diseases classified elsewhere with behavioral disturbance Status: Chronic Category: Medical Code(s): F02.81 - Dementia in other diseases classified elsewhere with behavioral disturbance (6) Parkinson's disease Status: Chronic Category: Medical Code(s): G20 - Parkinson's disease (7) COVID-19 virus IgG antibody detected Status: Acute Category: Medical Code(s): Z01.84 - Encounter for antibody response examination (8) Renal insufficiency Status: Acute Category: Medical Code(s): N28.9 - Disorder of kidney and ureter, unspecified (9) SIRS (systemic inflammatory response syndrome) Status: Acute Category: Medical Code(s): R65.10 - Systemic inflammatory response syndrome (SIRS) of non-infectious origin without acute organ dysfunction
--- NOTE | 2020-02-07 12:25 | PC.NURSE ---
patient ate his eggs, a full protein shake and an ensure for breakfast
[2020-02-07 16:00] VITALS: BP 143/80; PULSE 84; RESP 16; TEMP 36.8; O2SAT 94
--- NOTE | 2020-02-07 18:08 | PC.NURSE ---
End of shift note. Patient has remained on room air today. He has been turned q2h. He has had 3 attends changed with only urine. Patient has not had a bowel movement his entire stay. Patient really enjoys the vanilla protein shakes, he will drink the full amount. He has taken a few bites of things but mainly just wants his shakes. Took all medications today with no complications. Patient has a full linen change. Patient has been in good spirits all day. Will continue to monitor.
--- NOTE | 2020-02-07 18:36 | PC.NURSE ---
Exelon patch placed during the morning med pass. Placed on Lower left side of abdomen towards the back.
[2020-02-07 19:56] VITALS: BP 151/81; PULSE 95; RESP 22; TEMP 36.8; O2SAT 92
[2020-02-08] VITALS (10 sets, daily range): BP systolic 110–163; BP diastolic 67–87; PULSE 61–80; RESP 16–20; TEMP 36.4–36.7; O2SAT 95–100; BMI 20.8
--- NOTE | 2020-02-08 04:33 | PC.NURSE ---
Lungs CTA pt on RA wih O2 sat 95-97% pt voids per attends. turned q2. pt received bath and bed change this shift. bed alarm activated
--- NOTE | 2020-02-08 08:49 | P.PN_ITS ---
Internal Medicine - PN: Subj *Date: 02/08/20 *Time: 08:00 Interval history: per staff pt ate breakfast and drank ensure Exam Vital signs and Labs for Last 24 Hours: Temp Pulse Resp BP Pulse Ox 98.0 F 80 16 156/77 H 100 02/08/20 07:53 02/08/20 07:53 02/08/20 08:10 02/08/20 07:53 02/08/20 07:53 I & O for Last 24 hours: Intake & Output 02/05/20 02/06/20 02/07/20 02/08/20 11:59 11:59 11:59 11:59 Intake Total 2332 / 2332 2807 / 2807 3703 / 3703 Balance 2332 / 2332 2807 / 2807 3703 / 3703 Weight 141 lb 1.533 oz 143 lb 3.2 oz 144 lb 2 oz 145 lb 7 oz Microbiology Reports for the Last 24 Hours: Microbiology 02/05/20 08:00 Blood Blood Culture - Preliminary NO GROWTH AFTER 48 HOURS 02/05/20 08:00 Blood Blood Culture - Preliminary NO GROWTH AFTER 48 HOURS - Constitutional no acute distress - *Routine HEENT Exam Head: Present: normocephalic Eye: Present: PERRL ENT: Present: mucous membranes moist - *Routine Neck Exam Present: supple. Absent: lymphadenopathy - *Routine Respiratory Exam Present: decreased breath sounds - *Routine Cardiovascular Exam Present: RRR - *Routine Abdominal Exam Present: soft, normoactive bowel sounds. Absent: tenderness - *Routine Extremities Exam Present: normal capillary refill. Absent: cyanosis, clubbing, edema - *Routine Skin Exam Present: warm. Absent: rash Comments: swelling of face. - *Routine Neurological Exam Present: alert, oriented X3 - Routine Psychiatric Exam Present: normal affect Assessment and Plan (1) Altered mental status Status: Acute Qualifiers: Altered mental status type: somnolence Qualified Code(s): R40.0 - Daron nolence Category: Medical Code(s): R41.82 - Altered mental status, unspecified (2) Pneumonia due to COVID-19 virus Status: Acute Category: Medical Code(s): U07.1 - COVID-19; J12.89 - Other viral pneumonia (3) Sialadenitis Status: Acute Category: Medical Code(s): K11.20 - Sialoadenitis, unspecified (4) Hyperlipidemia Status: Acute Category: Medical Code(s): E78.5 - Hyperlipidemia, unspecified (5) Dementia in other diseases classified elsewhere with behavioral disturbance Status: Chronic Category: Medical Code(s): F02.81 - Dementia in other diseases classified elsewhere with behavioral disturbance (6) Parkinson's disease Status: Chronic Category: Medical Code(s): G20 - Parkinson's disease (7) COVID-19 virus IgG antibody detected Status: Acute Category: Medical Code(s): Z01.84 - Encounter for antibody response examination (8) Renal insufficiency Status: Acute Category: Medical Code(s): N28.9 - Disorder of kidney and ureter, unspecified (9) SIRS (systemic inflammatory response syndrome) Status: Acute Category: Medical Code(s): R65.10 - Systemic inflammatory response syndrome (SIRS) of non-infectious origin without acute organ dysfunction - Assessment and plan all Dx Assessment and Plan for all problems:: rounded with dr anton all orders per dr sloane salinas to see today
--- NOTE | 2020-02-08 09:50 | HMH.ACPN ---
Internal Medicine - PN: Subj *Date: 02/08/20 *Time: 09:50 Exam Vital signs and Labs for Last 24 Hours: Temp Pulse Resp BP Pulse Ox 98.0 F 80 16 156/77 H 100 02/08/20 07:53 02/08/20 07:53 02/08/20 08:10 02/08/20 07:53 02/08/20 07:53 I & O for Last 24 hours: Intake & Output 02/05/20 02/06/20 02/07/20 02/08/20 23:59 23:59 23:59 23:59 Intake Total 889 / 889 2977 / 2977 3450 / 3450 1526 / 1526 Balance 889 / 889 2977 / 2977 3450 / 3450 1526 / 1526 Weight 64 kg 64.954 kg 65.374 kg 65.969 kg Microbiology Reports for the Last 24 Hours: Microbiology 02/05/20 08:00 Blood Blood Culture - Preliminary NO GROWTH AFTER 48 HOURS 02/05/20 08:00 Blood Blood Culture - Preliminary NO GROWTH AFTER 48 HOURS Assessment and Plan (1) Altered mental status Status: Acute Qualifiers: Altered mental status type: somnolence Qualified Code(s): R40.0 - Somnolence Category: Medical Code(s): R41.82 - Altered mental status, unspecified (2) Pneumonia due to COVID-19 virus Status: Acute Category: Medical Code(s): U07.1 - COVID-19; J12.89 - Other viral pneumonia (3) Sialadenitis Status: Acute Category: Medical Code(s): K11.20 - Sialoadenitis, unspecified (4) Hyperlipidemia Status: Acute Category: Medical Code(s): E78.5 - Hyperlipidemia, unspecified (5) Dementia in other diseases classified elsewhere with behavioral disturbance Status: Chronic Category: Medical Code(s): F02.81 - Dementia in other diseases classified elsewhere with behavioral disturbance (6) Parkinson's disease Status: Chronic Category: Medical Code(s): G20 - Parkinson's disease (7) COVID-19 virus IgG antibody detected Status: Acute Category: Medical Code(s): Z01.84 - Encounter for antibody response examination (8) Renal insufficiency Status: Acute Category: Medical Code(s): N28.9 - Disorder of kidney and ureter, unspecified (9) SIRS (systemic inflammatory response syndrome) Status: Acute Category: Medical Code(s): R65.10 - Systemic inflammatory response syndrome (SIRS) of non-infectious origin without acute organ dysfunction The patient's infection will respond to the chosen ABx?: Yes Is the patient receiving the right drug, dose, and route?: Yes Could a more targeted ABx be ordered?: No
--- NOTE | 2020-02-08 11:19 | DIET.NUTRFU ---
Pt doing okay nutritionally. Oral swelling has improved. 50% PO intakes + good acceptance TID supplements(protein shake). 4# weight gain t/o stay.
[2020-02-08 11:49] LABS: Adenovirus,PCR Not Detected (NotDetected); Bordetella Pertussis Not Detected (NotDetected); Chlamydophila Pneumoniae, PCR Not Detected (NotDetected); Coronavirus 19, PCR Not Detected (NotDetected); Coronavirus 229E Not Detected (NotDetected); Coronavirus NL63 Not Detected (NotDetected); Coronavirus OC43 Not Detected (NotDetected); Coronovirus HKU1,PCR Not Detected (NotDetected); Human Metapneumovirus Not Detected (NotDetected); Influenza A, PCR Not Detected (NotDetected); Influenza AH1, 2009 Not Detected (NotDetected); Influenza AH1, PCR Not Detected (NotDetected); Influenza AH3,PCR Not Detected (NotDetected); Influenza B, PCR Not Detected (NotDetected); Mycoplasma Pneumoniae, PCR Not Detected (NotDetected); Parainfluenza 1, PCR Not Detected (NotDetected); Parainfluenza 2, PCR Not Detected (NotDetected); Parainfluenza 3, PCR Not Detected (NotDetected); Parainfluenza 4, PCR Not Detected (NotDetected); Respiratory Syncytial Virus Not Detected (NotDetected); Rhinovirus/Enterovirus Not Detected (NotDetected)
--- NOTE | 2020-02-08 14:38 | HMH.GSCON ---
*Admission Date: 02/05/20 *Reason for consult:: possible right parotid abscess/cellulitis *History of present illness: xdays Review of Systems - ENT Reports other - *Neurologic Reports weakness, Denies abnormal hearing [facility] History Medical History: Reports:: Atherosclerotic Heart Disease, Atrial Fibrillation, Coronary Artery Disease, Dementia, Hiatal Hernia, Hyperlipidemia, Hypertension Denies:: Diabetes Mellitus Type 1, Diabetes Mellitus Type 2 *Have you ever received a pneumonia vaccine?: Yes *Have you received a flu vaccine this season?: Yes Other Medical History: Reports: Arthritis, Cataracts Other Surgeries: Yes: Colonoscopy, Other Amputation: No Fractures: No - *Social History Smoking Status: Unknown if ever smoked Alcohol Intake: never Substance Use Type: denies use *Occupational Status:: other Housing: senior living Household Members: other *Travel in the last 8 weeks: None Family Hx:: Unable to obtain Meds Home Medications Medication Instructions Recorded Confirmed Type acetaminophen 500 mg tablet 500 mg PO Q4HP PRN 04/23/17 02/05/20 History aspirin 81 mg tablet,delayed 81 mg PO DAILY 04/23/17 02/05/20 History release oxybutynin chloride 10 mg 10 mg PO DAILY 04/23/17 02/05/20 History tablet,extended release 24 hr pravastatin 40 mg tablet 40 mg PO HS 04/23/17 02/05/20 History Tramadol HCl [Tramadol 50mg 50 mg PO TID 04/15/18 02/05/20 History Tab] Vit C/Vit E AC/Lut/Copper/Zinc 1 each PO DAILY 04/15/18 02/05/20 History [Preservision Lutein Softgel] ondansetron HCL [Zofran 4mg Tab*] 4 mg PO Q8HP PRN 04/15/18 02/05/20 History Carbidopa/Levodopa 2 tab PO QID 04/16/18 02/05/20 History [Carbidopa/Levodopa 25/100mg Tablet] Rivastigmine [Exelon] 13.3 mg TD DAILY 04/16/18 02/05/20 History gabapentin 100 mg capsule 100 mg PO BID #60 cap 12/16/19 02/05/20 Rx Calcium Carbonate/Vitamin D3 1 each PO DAILY 02/05/20 02/05/20 History [Calcium 600-Vit D3 200 Tablet] Citalopram Hydrobromide 20 mg PO DAILY 02/05/20 02/05/20 History [Citalopram 20mg Tablet] Lactulose [Lactulose 10gm/15ml 30 ml PO DAILYP PRN 02/05/20 02/05/20 History Oral Soln] Metoprolol Succinate [Metoprolol 50 mg PO DAILY 02/05/20 02/05/20 History Succinate 50mg Tablet*] Olopatadine HCl [Pataday] 1 drp OP DAILY 02/05/20 02/05/20 History Omeprazole [Omeprazole 20mg 20 mg PO HS 02/05/20 02/05/20 History Capsule] Propylene Glycol/Peg 400 [Systane 1 applicatio OP HS 02/05/20 02/05/20 History Gel Eye Drops] Sennosides/Docusate Sodium 2 each PO BID 02/05/20 02/05/20 History [Senexon-S 50-8.6 mg Tablet] Tamsulosin HCl [Flomax 0.4mg 0.4 mg PO HS 02/05/20 02/05/20 History capsule] dilTIAZem HCL [Cardizem CD 120mg 120 mg PO DAILY 02/05/20 02/05/20 History Cap] Allergies Allergy/AdvReac Type Severity Reaction Status Date / Time Sulfa (Sulfonamide Allergy Unknown Verified 12/06/19 13:15 Antibiotics) [SULFA (SULFONAMIDE ANTIBIOTICS)] sulfamethoxazole Allergy Unknown Verified 12/06/19 13:15 [From Bactrim] trimethoprim [From Bactrim] Allergy Unknown Verified 12/06/19 13:15 Exam Vital signs and Labs for Last 24 Hours: Temp Pulse Resp BP Pulse Ox 97.8 F 66 16 163/87 H 100 02/08/20 11:35 02/08/20 11:35 02/08/20 12:03 02/08/20 11:35 02/08/20 11:35 Laboratory Results - last 24 hr 02/08/20 11:32: Chlamy pneumoniae PCR Not detected, Adenovirus (PCR) Not detected, B. pertussis DNA (PCR) Not detected, Coronavirus OC43 (PCR) Not detected, Coronavirus HKU1 (PCR) Not detected, Coronavirus 229E (PCR) Not detected, SARS-CoV-2 (PCR) Not detected, Coronavirus NL63 (PCR) Not detected, Human Metapneumovir PCR Not detected, Influenza A (H1) PCR Not detected, Influ A (H1N1/09) PCR Not detected, Influenza A (H3) PCR Not detected, Influenza Type A (PCR) Not detected, Influenza Type B (PCR) Not detected, M. pneumoniae (PCR) Not detected, Parainfluenza 1 (PCR) Not
--- NOTE | 2020-02-08 15:47 | PC.NURSE ---
Remain on room air w/ no s/s of resp distress noted. No cough. Lungs CTA. Pt has been awake periodically throughout day. Is a total feed, has consumed 25-50% of trays today. Abdomen is soft, non-tender w/ active BS in all quads. Pt was incontinent of one BM this shift. Is incontinent of bladder as well, attends changed prn. Skin intact. Swelling down right side of jaw/ neck noted to be improved by Dr. Acevedo today. Left eye remains red, drop provided per MAY. Pt has been turned Q2H, as well as oral care performed. Heels floating. Lovenox for VTE prophylaxis. Bed alarm in place for pt's safety. Family have called twice today to check on pt and were updated. Plans for DC back to [place] tomorrow.
[2020-02-09] VITALS: BP 147/68; PULSE 69; RESP 20; TEMP 37.1; O2SAT 95
[2020-02-09 04:00] VITALS: BP 150/47; PULSE 72; RESP 18; TEMP 36.8; O2SAT 95
[2020-02-09 05:00] VITALS: BMI 20.9
[2020-02-09 07:28] LABS: Basophils % 0.2 % (0.1-2.0); Hematocrit 42.4 % (42.0-52.0); Hemoglobin 13.2 g/dL (14.1-18.0); Lymphocytes % 7.5 % (10-50); Mean Corpuscular Hemoglobin 29.8 pg (27.0-31.2); Mean Corpuscular Volume 95.9 fl (80-94); Mean Platelet Volume 7.5 fl (7.4-10.4); Monocytes # 0.6 K/mm3 (0.1-1.0); Monocytes % 4.5 % (1.7-9.3); Neutrophils # 12.3 K/mm3 (1.8-7.8); Neutrophils % 87.8 % (37.0-80.0); Platelet Count 304 K/mm3 (142-424); Red Blood Count 4.42 M/mm3 (4.60-6.20); Red Cell Distribution Width 12.3 % (11.5-17.5)
[2020-02-09 07:31] LABS: MANUAL DIFFERENTIAL MANUAL DIFFERENTIAL (MANUAL DIFF)
[2020-02-09 07:33] LABS: Chloride 108 mmol/L (98-107); Potassium 3.5 mmoL/L (3.5-5.1); Sodium 141 mmol/L (136-145)
[2020-02-09 07:36] LABS: Anion Gap 11.5 mEq/L (5-15); Blood Urea Nitrogen 35 mg/dl (9-20); Carbon Dioxide 25 mmol/L (22.0-30.0); Creatinine Clearance Estimated 50 mL/min (50-200); Estimated Glomerular Filt Rate 64 ml/min (>60); GFR (African American) 78 ML/MIN (>60)
[2020-02-09 07:37] LABS: Glucose 133 mg/dl (74-100)
[2020-02-09 07:43] LABS: Calcium 7.9 mg/dl (8.4-10.2)
[2020-02-09 07:50] VITALS: BP 159/88; PULSE 80; RESP 20; TEMP 36.7; O2SAT 95
--- NOTE | 2020-02-09 08:07 | PC.NURSE ---
Pt is alert and responds when name is called but speech is very soft and difficult to understand. Pt has been turned, oral care given, and water offered q2. Lungs CTA, SaO2 > 94% t/o shift. Peripheral IV had to be changed d/t pt pulling IV out at the beginning of the shift. Pt has been combative at times. Lovenox for VTE. Bed alarm active for safety.
--- NOTE | 2020-02-09 08:13 | [facility].DCSUM ---
General - General Admission date:: 02/05/20 Discharge date: 02/09/20 HPI HPI: 79-year-old male who presents from [facility] with altered mental status Covid positive, hypoxia and facial abscess. Patient is only intermittently hypoxic and is sleeping comfortably however with decreased mental status while in ed. Patient will be started on IV clindamycin 600 mg every 8 hr and Unasyn IV 1.5 g every 6 hours. Patient is given Solu-Medrol 125 mg IV. Patient was then admitted to the Covid unit for further evaluation. Discussed pt with dr Acevedo and he will see pt later today. Hospital Course Hospital Course: 79-year-old male who presents from [facility] with altered mental status Covid positive, hypoxia and facial abscess. Patient is only intermittently hypoxic and is sleeping comfortably however with decreased mental status while in ed. Patient will be started on IV clindamycin 600 mg every 8 hr and Unasyn IV 1.5 g every 6 hours. Patient is given Solu-Medrol 125 mg IV. Patient was then admitted to the Covid unit for further evaluation. Discussed pt with dr Acevedo and he will see pt later today. WBCs have decreased from 20.7-14.0, sodium 147, potassium 3.9 now sodium 141, potassium 3.5. BUN/creatinine initially 39/1.4, now 135/1.1 Blood cultures negative x2 SARS-COV-2 IgG positive, SARS-COV-2 IgM negative SARS-COV-2 PCR negative x2 During his stay he has received clindamycin and ampicillin IV. He has been afebrile the length of his stay ENT has seen and Rec: Given his poor general condition he needs to be ambulated, he does not need to continue on the Amoxil but I would recommend that he continue on the clindamycin 900 mg twice daily for another 3 days. He should of course have his coronavirus test redone. Chest x-ray revealed no acute findings, chest CT revealed no acute findings 02/08/[address]: FINDINGS: There is a mild degree of motion artifact enhanced images. There is diffuse swelling of the right parotid gland both superficial and deep lobe there is also some slight increased soft tissue density along the right pterygoid process. No localized abscess is evident. There is mild thickening of the soft tissues in the right external auditory canal region as well. There is some nonspecific calcifications in the external auditory canal on both sides within the subcutaneous tissues. There are few scattered small lymph nodes but no dominant adenopathy. No sinus air-fluid level. There is mild mucosal thickening of the ethmoid sinuses. The patient is edentulous. With heterogeneous density. There is also some stranding of the subcutaneous tissues at the region of the parotid. No obvious abscess is evident. No obvious sialolith. The posterior aspect of the masseter muscle on the right is somewhat ill-defined. IMPRESSION: Heterogeneous enlargement and enhancement of the right parotid gland consistent with parotitis along with some subcutaneous increased density in the right facial area consistent with cellulitis. The soft tissue swelling involves the deep lobe of the parotid gland on the right with some thickening of the tissues in the right parapharyngeal/lateral parapharyngeal space. No obvious abscess Dictated by: Geremias 1. We will discharge back to [facility] today 2. Clindamycin 900 mg twice daily x3 days (5 doses) 3. PCP will see in 1 week Objective Vital signs: Temp Pulse Resp BP Pulse Ox 98.1 F 80 20 159/88 H 95 02/09/20 07:50 02/09/20 07:50 02/09/20 07:50 02/09/20 07:50 02/09/20 07:50 no acute distress - *Routine HEENT Exam Head: Present: normocephalic ENT: Present: mucous membranes moist - *Routine Neck Exam Present: trachea midline. Absent: JVD, tracheal deviation - *Routine Respiratory Exam Present: decreased breath sounds. Absent: accessory muscle use - *Routine Cardiovascular Exam Present:
--- NOTE | 2020-02-09 09:42 | SW/DCPLANNER ---
This patient currently resides at [facility]. Per Wendy at [facility] patient is [facility] level of care. This patient will discharge back to [facility] today. I have faxed discharge summary and negative COVID results. Patient will discharge today.
[2020-02-09 09:58] LABS: Lymphocytes % 6 % (10-50); Monocytes % 2 % (2-9); Neutrophils % 92 % (42-76); Platelet Estimate Normal; RBC Morphology Normal; Total Cells Counted 100
--- NOTE | 2020-02-09 10:30 | PC.NURSE ---
report called to jorge alberto mehta at [facility].
== END 2020-02-09 11:08 | DRG 177 ==
LOC: ER 08:06 → ICU 09:13
PROVIDERS: Nurse Practitioner Family; Otolaryngology; Admitting Provider Emergency Medicine; Emergency Provider Student in an Organized Health Care Education/Training Program; PCP Emergency Medicine; Visit Provider Emergency Medicine
DX: U07.1 COVID-19 (principal); J12.89 Other viral pneumonia; F02.81 Dementia in other diseases classified elsewhere, unspecified severity, with behavioral disturbance; K11.20 Sialoadenitis, unspecified; I10 Essential (primary) hypertension; I25.10 Atherosclerotic heart disease of native coronary artery without angina pectoris; I48.0 Paroxysmal atrial fibrillation; R65.10 Systemic inflammatory response syndrome (SIRS) of non-infectious origin without acute organ dysfunction; R29.6 Repeated falls; E78.5 Hyperlipidemia, unspecified; G20 Parkinson's disease; Z88.1 Allergy status to other antibiotic agents; Z79.82 Long term (current) use of aspirin; Z79.899 Other long term (current) drug therapy
CPT/HCPCS: 70450; 70487; 71045; 80048; 80053; 81001; 83605; 84145; 85007; 85025; 86328; 87040; 87086; 87581; 87633; 87798; 99284; Q9967

== ENCOUNTER → 2020-02-05 08:17 | Outpatient (CLI) | payer MEDICARE, MEDICAID, SELFPAY ==
[2020-02-05 08:54] LABS: Microscopic, Urine URINE MICROSCOPIC (MICROSCOPIC)
[2020-02-05 09:00] LABS: Appearance,Urine CLEAR (Clear); Bilirubin,Urine Negative (Negative); Blood, Urine TRACE-L (Negative); Color,Urine YELLOW (Yellow); Glucose,Urine (UA) Negative (Negative); Ketones,Urine Negative (Negative); Leukocyte Esterase,Urine TRACE (Negative); Nitrate,Urine Negative (Negative); PH,Urine 5.5 (5.0-8.5); Protein,Urine TRACE (Negative); Specific Gravity, Urine >= 1.030 (1.005-1.030); Urobilinogen,Urine 0.2 EU/dl (0.2)
[2020-02-05 09:36] LABS: Bacteria,Urine 3+ /lpf; RBC,Urine Occasional #/hpf (0-3)
== END ==
PROVIDERS: Visit Provider Emergency Medicine
DX: R41.82 Altered mental status, unspecified (principal)
CPT/HCPCS: 81001; 87086